=== PATIENT | female | born 1945 | race Caucasian/White ===

== ENCOUNTER 2017-01-26 13:17 | Inpatient (IN) | payer MEDICARE ==
[2017-01-26] MEDS ORDERED: SODIUM CHLORIDE 0.9% 1,000 ML IV STA ×2 (14:16)
[2017-01-26] MEDS ORDERED: ONDANSETRON 4 MG/2 ML VIAL IVP STA (14:16)
[2017-01-26] MEDS ORDERED: RX INFO: IV CONTRAST WAS GIVEN 1 EACH MISC MISCELLANE PRN (14:16)
--- NOTE | 2017-01-26 14:24 | ED ---
General Adult HPI - General Chief complaint: Nausea/Vomiting/Diarrhea Stated complaint: diarrhea Time Seen by Provider: 01/26/17 14:10 Source: patient, family, RN notes reviewed Mode of arrival: ambulatory Limitations: no limitations - History of Present Illness Initial comments: 71-year-old female with past medical history hypertension and hypercholesterolemia presents with a two-week history of diarrhea. Patient's diarrhea initially was loose stool, progressing to watery and containing mucous. There is no reported blood. Patient did have one episode of nausea vomiting 2 nights ago. Patient was seen at urgent care and treated with loperamide. Her diarrhea has persisted and her pain has worsened. She is describing crampy abdominal pain worse in the left lower quadrant. Patient denies subjective fever or chills, however she is found to be febrile in the emergency department. Denies chest pain or shortness of breath. Denies dysuria. She was recently treated for a fungal infection on her foot, she was given a ten-day course of medication but is uncertain what this is. Only recent travel was to [place]. There is no known sick contacts. Past surgical history of cholecystectomy and hysterectomy. - Related Data Home Medications Medication Instructions Recorded Confirmed Albuterol Sulfate [Proair Hfa] 1 - 2 puff INHALATION RT-Q6H PRN 01/26/17 Calcium Carbonate [Calcium] 600 mg PO DAILY 01/26/17 01/26/17 FLUoxetine HCL [PROzac Weekly] 90 mg PO TU 01/26/17 01/26/17 Losartan Potassium [Cozaar] 25 mg PO DAILY 01/26/17 01/26/17 Pravastatin Sodium [Pravachol] 20 mg PO HS 01/26/17 01/26/17 Allergies Allergy/AdvReac Type Severity Reaction Status Date / Time Penicillins Allergy Rash/Hives Verified 01/26/17 14:24 Review of Systems ROS Statement: Those systems with pertinent positive or pertinent negative responses have been documented in the HPI. ROS Other: All systems not noted in ROS Statement are negative. Past Medical History Past Medical History: Hyperlipidemia, Hypertension History of Any Multi-Drug Resistant Organisms: None Reported Past Surgical History: Cholecystectomy, Hysterectomy, Tubal Ligation Additional Past Surgical History / Comment(s): bladder suspension Past Psychological History: Anxiety Smoking Status: Never smoker Past Alcohol Use History: Occasional Past Drug Use History: None Reported General Exam Limitations: no limitations General appearance: alert, in no apparent distress Head exam: Present: atraumatic, normocephalic, normal inspection Eye exam: Present: normal appearance, PERRL, EOMI ENT exam: Present: normal exam, normal oropharynx, mucous membranes moist Neck exam: Present: normal inspection. Absent: tenderness, meningismus Respiratory exam: Present: normal lung sounds bilaterally. Absent: respiratory distress, wheezes Cardiovascular Exam: Present: regular rate, normal rhythm, normal heart sounds GI/Abdominal exam: Present: soft, tenderness (Generalized tenderness to palpation, worse in the left lower quadrant). Absent: guarding, rebound Extremities exam: Present: normal inspection, normal capillary refill. Absent: pedal edema Neurological exam: Present: alert, oriented X3. Absent: motor sensory deficit Psychiatric exam: Present: normal affect, normal mood Skin exam: Present: warm, dry. Absent: cyanosis, diaphoretic Course Vital Signs 01/26/17 13:42 Temperature 101.4 F H Pulse Rate 93 Respiratory 16 Rate Blood Pressure 144/62 O2 Sat by Pulse 96 Oximetry Medical Decision Making - Medical Decision Making 71-year-old female presenting with two-week history of diarrhea. Patient states her diarrhea is will see watery with some mucus. Denies any blood. On examination patient does have generalized tenderness to palpation worsen the left lower quadrant. CT is obtained which shows diffuse colitis, no diverticulitis, no focal abscess. White blood cell count is elevated at 17.5, there is signs of urinary tract infection although patient denies dysuria, she is febrile. Urine culture is obtained patient is Started on antibiotics for urinary tract infection. C. difficile toxin is pending. Patient is febrile and appears somewhat dehydrated on examination. She will be admitted for IV rehydration, antibiotics for presumed urinary tract infection, and colitis, possible C. difficile, laboratory study is pending. Diagnosis: Dehydration, UTI, colitis, rule out C. difficile. - Lab Data Result diagrams: 01/26/17 14:31 01/26/17 14:31 Lab Results 01/26/17 01/26/17 01/26/17 Range/Units 14:31 14:31 14:31 WBC 17.5 H (3.8-10.6) k/uL RBC 4.61 (3.80-5.40) m/uL Hgb 13.4 (11.4-16.0) gm/dL Hct 40.3 (34.0-46.0) % MCV 87.5 (80.0-100.0) fL MCH 29.1 (25.0-35.0) pg MCHC 33.3 (31.0-37.0) g/dL RDW 13.7 (11.5-15.5) % Plt Count 314 (150-450) k/uL Neutrophils % 80 % Lymphocytes % 11 % Monocytes % 6 % Eosinophils % 1 % Basophils % 0 % Neutrophils # 13.9 H (1.3-7.7) k/uL Lymphocytes # 2.0 (1.0-4.8) k/uL Monocytes # 1.0 (0-1.0) k/uL Eosinophils # 0.2 (0-0.7) k/uL Basophils # 0.1 (0-0.2) k/uL Sodium 133 L (137-145) mmol/L Potassium 4.5 (3.5-5.1) mmol/L Chloride 96 L (98-107) mmol/L Carbon Dioxide 27 (22-30) mmol/L Anion Gap 10 mmol/L BUN 9 (7-17) mg/dL Creatinine 0.66 (0.52-1.04) mg/dL Est GFR (MDRD) Af Amer >60 (>60 ml/min/1.73 sqM) Est GFR (MDRD) Non-Af >60 (>60 ml/min/1.73 sqM) Glucose 88 (74-99) mg/dL Calcium 9.2 (8.4-10.2) mg/dL Total Bilirubin 0.9 (0.2-1.3) mg/dL AST 31 (14-36) U/L ALT 37 (9-52) U/L Alkaline Phosphatase 74 (38-126) U/L Total Protein 6.1 L (6.3-8.2) g/dL Albumin 3.7 (3.5-5.0) g/dL Amylase <30 L (30-110) U/L Lipase 53 (23-300) U/L Urine Color Dark Brown Urine Appearance Turbid H (Clear) Urine pH 6.0 (5.0-8.0) Ur Specific [place] 1.024 (1.001-1.035) Urine Protein 2+ H (Negative) Urine Glucose (UA) Negative (Negative) Urine Ketones 1+ H (Negative) Urine Blood Small H (Negative) Urine Nitrite Negative (Negative) Urine Bilirubin Negative (Negative) Urine Urobilinogen <2.0 (<2.0) mg/dL Ur Leukocyte Esterase Large H (Negative) Urine RBC 2 (0-5) /hpf Urine WBC 102 H (0-5) /hpf Urine WBC Clumps Many H (None) /hpf Ur Squamous Epith Cells 1 (0-4) /hpf Urine Bacteria Occasional H (None) /hpf Urine Mucus Rare H (None) /hpf Disposition Clinical Impression: Dehydration, Colitis Disposition: ADMITTED IP TO THIS HOSP Condition: Stable Referrals: Nonstaff,Physician [Primary Care Provider] - 1-2 days Decision to Admit Reason: Admit from EC Decision Date: 01/26/17 Decision Time: 17:05
[2017-01-26 14:53] LABS: Basophils # (A) 0.1 k/uL (0-0.2); Basophils % (A) 0 %; CH 30.5; Eosinophils # (A) 0.2 k/uL (0-0.7); Eosinophils % (A) 1 %; HCT 40.3 % (34.0-46.0); HDW 2.79; HGB 13.4 gm/dL (11.4-16.0); Luc # (Auto) 0.23; Luc % (Auto) 1; Lymphocytes % (A) 11 %; MCH 29.1 pg (25.0-35.0); MCHC 33.3 g/dL (31.0-37.0); MCV 87.5 fL (80.0-100.0); Mean Platelet Volume 7.8; Monocytes % (A) 6 %; Neutrophils # (A) 13.9 k/uL (1.3-7.7); Neutrophils % (A) 80 %; RBC 4.61 m/uL (3.80-5.40); RDW 13.7 % (11.5-15.5); WBC 17.5 k/uL (3.8-10.6); WBC (Perox) 17.85
[2017-01-26 15:01] LABS: Appearance,Urine Turbid (Clear); Bacteria,Urine Occasional /hpf; Bilirubin,Urine Negative (Negative); Glucose,Urine (UA) Negative (Negative); Ketones,Urine 1+ (Negative); Leukocyte Esterase,Urine Large (Negative); Mucus,Urine Rare /hpf; Nitrite,Urine Negative (Negative); Particle Count 16884; Protein,Urine 2+ (Negative); RBC,Urine 2 /hpf (0-5); Specific Gravity,Urine 1.024 (1.001-1.035); Squamous Epithelial Cell,Urine 1 /hpf (0-4); UA Billing (MACRO vs. MICRO) MICRO; Urobilinogen,Urine <2.0 mg/dL (<2.0); WBC,Urine 102 /hpf (0-5)
[2017-01-26 15:03] LABS: ALT 37 U/L (9-52); AST 31 U/L (14-36); Alkaline Phosphatase 74 U/L (38-126); Amylase <30 U/L (30-110); Anion Gap 10 mmol/L; Blood Urea Nitrogen 9 mg/dL (7-17); Calcium 9.2 mg/dL (8.4-10.2); Carbon Dioxide 27 mmol/L (22-30); Chloride 96 mmol/L (98-107); Glucose 88 mg/dL (74-99); Non-African American GFR(MDRD) >60 (>60 ml/min/1.73 sqM); Potassium 4.5 mmol/L (3.5-5.1); Sodium 133 mmol/L (137-145); Total Bilirubin 0.9 mg/dL (0.2-1.3); Total Protein 6.1 g/dL (6.3-8.2)
--- NOTE | 2017-01-26 15:49 | CT ---
EXAMINATION TYPE: CT abdomen pelvis w con DATE OF EXAM: 01/26/2017 COMPARISON: NONE HISTORY: Diarrhea and left lower quadrant pain x [address] DLP: 615.70 mGycm CONTRAST: CT scan of the abdomen and pelvis is performed without Oral Contrast and with IV Contrast, patient in jected with 100 mL of Omnipaque 300. FINDINGS: LUNG BASES-: No visible nodule. No infiltrate. LIVER/GB: Simple hepatic cyst is noted which measures 2.6 cm. Cholecystectomy clips are in place. Jason iary tree is of normal caliber. PANCREAS: No inflammation. No distinct mass. SPLEEN: No splenic enlargement. No lesion seen. ADRENALS: No nodule. No thickening. KIDNEYS/BLADDER: No hydronephrosis. 1 cm left lower pole renal calculus. No disctinct renal mass. Ur inary bladder grossly unremarkable. BOWEL: Normal appendix. There is moderate wall thickening involving the colon extending from the sple con flexure through the sigmoid colon compatible with nonspecific colitis. Differential diagnostic po ssibilities include various infectious, inflammatory and vascular etiologies. No evidence of perforat ion or free air. No abscess identified. Trace free fluid within the pelvis. GENITAL ORGANS: No gross abnormality. LYMPH NODES: No greater than 1cm abdominal or pelvic lymph nodes are appreciated. AORTA: No significant abnormality. OSSEOUS STRUCTURES: No significant abnormality is seen. OTHER: No significant additional abnormality is seen. IMPRESSION: 1. Findings compatible with a nonspecific colitis.
[2017-01-26] MEDS ORDERED: NALOXONE 0.4 MG/ML 1 ML VIAL IV PRN (17:38)
[2017-01-26] MEDS ORDERED: MORPHINE SULFATE 4 MG/ML SYRINGE IV PRN (17:38)
[2017-01-26] MEDS ORDERED: ACETAMINOPHEN TAB 325 MG TAB PO STA (17:49)
[2017-01-26] MEDS ORDERED: metroNIDAZOLE-NS PMX 500 MG in SALINE 1 100ML.BAG IVPB STA (18:15)
[2017-01-26] MEDS: DEXTROSE 5%-0.45% NACL 1,000 ML IV SCH (21:24)
[2017-01-26] MEDS: metroNIDAZOLE-NS PMX 500 MG in SALINE 1 100ML.BAG IVPB SCH (21:26)
[2017-01-26] MEDS: FAMOTIDINE 20 MG TAB PO SCH (21:33)
[2017-01-26] MEDS: ONDANSETRON 4 MG/2 ML VIAL IVP PRN (21:34)
[2017-01-27] MEDS ORDERED: ACETAMINOPHEN TAB 325 MG TAB PO STA (06:21)
[2017-01-27] MEDS: DEXTROSE 5%-0.45% NACL 1,000 ML IV SCH (06:32)
[2017-01-27] MEDS: FAMOTIDINE 20 MG TAB PO SCH ×2 (08:28→19:54)
[2017-01-27 08:35] LABS: Basophils # (A) 0.1 k/uL (0-0.2); Basophils % (A) 0 %; CH 30.3; CHCM 34.1; Eosinophils # (A) 0.3 k/uL (0-0.7); Eosinophils % (A) 2 %; HCT 38.7 % (34.0-46.0); HDW 2.76; HGB 12.6 gm/dL (11.4-16.0); Luc # (Auto) 0.21; Luc % (Auto) 1; Lymphocytes # (A) 2.3 k/uL (1.0-4.8); Lymphocytes % (A) 13 %; MCH 29.1 pg (25.0-35.0); MCHC 32.7 g/dL (31.0-37.0); MCV 89.2 fL (80.0-100.0); Mean Platelet Volume 8.2; Monocytes # (A) 1.1 k/uL (0-1.0); Monocytes % (A) 6 %; Neutrophils # (A) 13.4 k/uL (1.3-7.7); Neutrophils % (A) 77 %; RBC 4.34 m/uL (3.80-5.40); RDW 13.1 % (11.5-15.5); WBC 17.4 k/uL (3.8-10.6); WBC (Perox) 16.98
[2017-01-27 08:54] LABS: ALT 37 U/L (9-52); AST 32 U/L (14-36); Alkaline Phosphatase 74 U/L (38-126); Anion Gap 10 mmol/L; Blood Urea Nitrogen 7 mg/dL (7-17); Calcium 8.5 mg/dL (8.4-10.2); Carbon Dioxide 24 mmol/L (22-30); Chloride 100 mmol/L (98-107); Glucose 88 mg/dL (74-99); Magnesium 1.6 mg/dL (1.6-2.3); Non-African American GFR(MDRD) >60 (>60 ml/min/1.73 sqM); Potassium 3.8 mmol/L (3.5-5.1); Sodium 134 mmol/L (137-145); Total Bilirubin 0.7 mg/dL (0.2-1.3); Total Protein 5.4 g/dL (6.3-8.2)
[2017-01-27] MEDS: metroNIDAZOLE-NS PMX 500 MG in SALINE 1 100ML.BAG IVPB SCH ×3 (09:40→20:33)
[2017-01-27] MEDS: CHERRY FLAVOR 60 ML BOTTLE PO PRN ×2 (12:46→18:02)
[2017-01-27] MEDS: VANCOMYCIN ORAL SOLUTION 250 MG/5 ML BOTTLE PO SCH ×3 (12:46→23:07)
[2017-01-27] MEDS: CHOLESTYRAMINE (WITH SUGAR) 4 GM PACKET PO SCH ×2 (16:08→19:53)
[2017-01-27] MEDS ORDERED: ALPRAZolam 0.25 MG TAB PO PRN (16:18)
[2017-01-27] MEDS ORDERED: TEMAZEPAM 15 MG CAP PO PRN (16:18)
[2017-01-27] MEDS ORDERED: HYDROmorphone 1 MG/ML 1 ML SYRINGE IVP PRN (16:18)
[2017-01-27] MEDS ORDERED: HYDROcodone/APAP 5-325MG 1 EACH TAB PO PRN (16:18)
[2017-01-27] MEDS ORDERED: ALBUTEROL NEBULIZED 2.5 MG/3 ML INHALATION PRN (16:18)
[2017-01-27] MEDS: SODIUM CHLORIDE 0.9% 1,000 ML IV SCH (16:43)
[2017-01-27] MEDS: PRAVASTATIN SODIUM 20 MG TAB PO SCH (20:33)
--- NOTE | 2017-01-27 22:25 | HP ---
CHIEF COMPLAINT: Abdominal pain and diarrhea and nausea. HISTORY OF PRESENT ILLNESS: This 71-year-old woman with a past medical history of multiple medical problems, including hypertension, hyperlipidemia, being followed by a primary physician in [place], was living in [place] for the summer. A couple of months ago, the patient had a 10-day course of antibiotics for bronchitis. Currently patient is complaining of abdominal pain and diarrhea for the past several days. Because of increasing difficulties, the patient came to [facility] and has been admitted for further evaluation and treatment. The patient had multiple evaluations after admission. White count is elevated. C difficile is positive. The patient also had abnormal pelvis CT scan which showed non-specific colitis. The patient is admitted for further evaluation and treatment. There is no history of any fever, rigor or chills. No history of headache, loss of consciousness or seizures at this time. PAST MEDICAL HISTORY: 1. History of hypertension. 2. Hyperlipidemia. 3. Cholecystectomy. Medications prior to admission include: 1. Pravastatin 20 mg at bedtime. 2. Cozaar 25 mg p.o. daily. 3. Prozac 90 mg p.o. Tuesday. 4. Calcium 600 mg p.o. daily. 5. ProAir HFA 2 puffs q.6 p.r.n. ALLERGIES: PENICILLIN. FAMILY HISTORY: History of CVA, TIA, hypertension, emphysema in the family. SOCIAL HISTORY: No history of smoking. Occasional alcohol intake. REVIEW OF SYSTEMS: ENT: No diminished hearing. No diminished vision. CARVIOVASCULAR SYSTEM: No angina, palpitations. RESPIRATORY SYSTEM: As mentioned earlier. GI: No nausea, vomiting. : No dysuria, retention. NERVOUS SYSTEM: No numbness, weakness. ALLERGY/IMMUNOLOGY: No asthma, hayfever. MUSCULOSKELETAL: As mentioned earlier. HEMATOLOGY/ONCOLOGY: No history of anemia. ENDOCRINE: No history of diabetes, hypothyroidism. CONSTITUTIONAL: As mentioned earlier. DERMATOLOGY: Negative. RHEUMATOLOGY: Negative. PSYCHIATRY: As mentioned earlier. PHYSICAL EXAM: Patient is alert and oriented x3. Pulse is 85, blood pressure 129 /61, respiration 16, temperature 98.1, pulse ox 97% on room air. HEENT: Conjunctivae normal. Oral mucosa is moist. NECK: No jugular venous distention. No carotid bruit. No lymph node enlargement. CARDIOVASCULAR: S1, S2 normal. No murmur. No thrills. RESPIRATORY: Breath sounds diminished at the bases. No rhonchi. No crackles. ABDOMEN: Soft. Mild diffuse tenderness present. Mild diffuse distention also present. No mass palpable. LEGS: No edema. No swelling. NERVOUS SYSTEM: Higher functions as mentioned earlier. Moves all 4 limbs. No focal motor or sensory deficit. LYMPHATICS: No lymph node palpable in neck, axillae or groin. SKIN: No ulcer, rash, bleeding. LABS: WBC 17.5. Sodium 133. UA noted. ASSESSMENT: 1. Abdominal pain and diarrhea with possible acute Clostridium difficile colitis with SIRS. 2. Hyponatremia. 3. History of hypertension. 4. Hyperlipidemia. 5. History of cholecystectomy. RECOMMENDATIONS AND DISCUSSION: In this 71-year-old woman who presented with multiple complex medical issues, we will monitor the patient closely, continue the current medications, continue with symptomatic treatment. Will add p.o. vancomycin. Infectious disease evaluation. Otherwise, continue to monitor. DVT prophylaxis. Incentive spirometry. Guarded prognosis because of the complex medical issues. Cultures have been requested. I would also recommend basic labs , pain medications. Further recommendations to follow. See orders for further details. Also recommend that the patient follows up with a primary physician closely after discharge for continued followup. This particular episode of C difficile could be mostly related to the antibiotic usage earlier this summer by the patient. I would recommend continuing with home medications, also. MANDAD
[2017-01-27] MEDS: ACETAMINOPHEN TAB 500 MG TAB PO PRN (23:06)
[2017-01-28 07:18] LABS: Basophils # (A) 0.1 k/uL (0-0.2); Basophils % (A) 0 %; CH 29.1; CHCM 33.7; Eosinophils # (A) 0.5 k/uL (0-0.7); Eosinophils % (A) 3 %; HCT 33.8 % (34.0-46.0); HDW 2.97; HGB 11.3 gm/dL (11.4-16.0); Luc # (Auto) 0.17; Luc % (Auto) 1; Lymphocytes # (A) 1.8 k/uL (1.0-4.8); Lymphocytes % (A) 12 %; MCH 29.2 pg (25.0-35.0); MCHC 33.6 g/dL (31.0-37.0); MCV 86.9 fL (80.0-100.0); Mean Platelet Volume 7.3; Monocytes # (A) 0.8 k/uL (0-1.0); Monocytes % (A) 5 %; Neutrophils # (A) 11.4 k/uL (1.3-7.7); Neutrophils % (A) 78 %; RBC 3.89 m/uL (3.80-5.40); RDW 12.8 % (11.5-15.5); WBC 14.6 k/uL (3.8-10.6)
[2017-01-28 07:36] LABS: Anion Gap 6 mmol/L; Blood Urea Nitrogen 4 mg/dL (7-17); Calcium 8.3 mg/dL (8.4-10.2); Carbon Dioxide 25 mmol/L (22-30); Chloride 107 mmol/L (98-107); Glucose 88 mg/dL (74-99); Non-African American GFR(MDRD) >60 (>60 ml/min/1.73 sqM); Potassium 3.6 mmol/L (3.5-5.1); Sodium 138 mmol/L (137-145)
[2017-01-28] MEDS: LOSARTAN 25 MG TAB PO SCH (09:49)
[2017-01-28] MEDS: FAMOTIDINE 20 MG TAB PO SCH ×2 (09:49→22:01)
[2017-01-28] MEDS: metroNIDAZOLE-NS PMX 500 MG in SALINE 1 100ML.BAG IVPB SCH ×3 (09:49→22:08)
[2017-01-28] MEDS: CHOLESTYRAMINE (WITH SUGAR) 4 GM PACKET PO SCH ×3 (09:50→20:22)
[2017-01-28] MEDS: SODIUM CHLORIDE 0.9% 1,000 ML IV SCH ×2 (09:50→22:06)
[2017-01-28] MEDS: VANCOMYCIN ORAL SOLUTION 250 MG/5 ML BOTTLE PO SCH ×3 (09:52→18:49)
--- NOTE | 2017-01-28 13:43 | CONS ---
DATE OF CONSULTATION: 01/27/2017 REASON FOR CONSULTATION: C-dif colitis. HISTORY OF PRESENT ILLNESS: The patient is a 71-year-old female who was treated in December with bilateral toes infection. The patient ( ) she was given antibiotics for ten days and afterwards she has been given ( ) for six weeks. The patient started having diarrhea on January 11 and has been having diarrhea for the last two weeks now. She did have multiple loose stools with mucous in it but no blood in it. The patient did have some crampy lower abdominal pain mostly on the left side intensity about 5 to 6 out of 10. Some nausea and she did have an episode of vomiting. With these symptoms, the patient did present to [facility] ER where the patient has been evaluated by the ER physician. The patient did have a CT of the abdomen and pelvis that did show evidence of a nonspecific colitis. The patient did have a fever of 102.3 degrees with an elevated white count of 17.5. Stool for C. dif was sent which came back positive. The patient also did have a positive UA. No significant urinary symptoms. Rocephin was added as well. I was asked to see the patient today for further recommendation regarding antibiotic therapy. REVIEW OF SYSTEMS: Constitutional: Positive for weakness along with fever. EYES: No complaint. HEENT: No complaint. Respiratory: No complaint. Cardiovascular: No complaint. : No complaint. Gastrointestinal: As per history of present illness. Musculoskeletal: No complaint. Integumentary: No complaint. Psychological: No complaint. Endocrine: No complaint. Neurological: No complaint. Past medical history significant for hypertension, hyperlipidemia. Past surgical history: Tubal ligation, hysterectomy, cholecystectomy. SOCIAL HISTORY: No history of smoking, drinking or drug use. FAMILY HISTORY: No pertinent findings noticed. ALLERGIES: PENICILLIN ( ). Medications include the patient is currently on: 1. Tylenol. 2. [place]. 3. Xanax. 4. Questran. 5. Pepcid. 6. Dilaudid. 7. Cozaar. 8. Flagyl IV. 9. P.o. Vancomycin. 10. Pravachol. 11. ( ). 12. Rocephin. On examination, blood pressure is 129/61 with a pulse of 85. Temperature 98.1. T-Max 102. She is 97% on room air. General description is an elderly female up in the chair, in no distress. No tachypnea or accessory muscles of respiration use. HEENT: Examination no pallor or scleral icterus. Oral mucosa membranes dry. NECK: Trachea is central. No thyromegaly. LUNGS: Unlabored breathing. Clear to auscultation anteriorly. No wheeze or crackle. HEART: S1, S2 regular rate and rhythm. ABDOMEN: Soft. She is mildly tender in the lower quadrant area. No guarding and no rigidity. EXTREMITIES: No edema of the feet. SKIN: No rash or mass palpable. NEUROLOGICALLY: The patient is awake, alert and oriented times two. Mood and affect normal. LABS: Hemoglobin 12.6, white count 17.4, BUN 7, creatinine 0.72. Electrolytes have been normal. Liver enzymes are normal. Urine has been positive. Stools C. dif positive. CT of the abdomen and pelvis with nonspecific colitis. DIAGNOSTIC IMPRESSION AND PLAN: 1. The patient admitted to the hospital with sepsis and the patient did have a fever of 102 degrees. She had elevated white count meeting criteria for SIRS in a patient who predominant symptom has been diarrhea going on four about two weeks with antibiotic exposure prior to that for toe infection and evidence of colitis on a CT, likely representing an acute D. dif colitis. 2. The patient did have a positive UA but no significant urinary symptoms, with question of possible asymptomatic bacteruria. PLAN: 1. We recommend keeping the patient on Vancomycin 250 po q6h along with IV Flagyl and Questran. 2. Aggressive treatment for underlying C. dif colitis. 3. Discontinue the Rocephin as clinical suspicion is low for UTI and to prevent any worsening from underlying C. dif. 4. The patient has been advised to increase Probiotic and ( ) intake. 5. We will follow-up on the clinical condition and cultures to further adjust medication if needed. Thank you for this consultation. We will follow this patient along with you. KATIE
--- NOTE | 2017-01-28 17:00 | PN ---
DATE OF SERVICE: 01/28/2017 REASON FOR FOLLOWUP: C difficile colitis. INTERVAL HISTORY: The patient did have fever of 101.4 degrees Fahrenheit last night. However, the patient has been afebrile since then. The patient's diarrhea seems to have improved, with no BM this morning. Patient did have lunch , which she kept down, and no nausea or vomiting. Denies significant chest pain , shortness of breath or cough, and no worsening abdominal pain. On examination, blood pressure is 123/55 with a pulse of 79, temperature 99.4. She is 96% on room air. General description is an elderly female up in the room in no distress. RESPIRATORY SYSTEM: Unlabored breathing. Clear to auscultation anteriorly. HEART: S1, S2. Regular rate and rhythm. ABDOMEN: Soft. Mildly distended. Not as tender as yesterday. LABS: Hemoglobin 11.3, white count 14.6 with a BUN of 4, creatinine 0.66. DIAGNOSTIC IMPRESSION AND PLAN: Patient with Clostridium difficile colitis, admitted to hospital with sepsis. Will keep the patient on IV Flagyl and oral vancomycin for another 24 to 48 hours. The patient did have overall clinical improvement. She should be able to finish therapy with oral vancomycin for at least 2 more weeks with close outpatient followup. Patient has been advised to use her probiotic ( ). MTDD
[2017-01-28] MEDS: ACETAMINOPHEN TAB 500 MG TAB PO PRN (20:19)
--- NOTE | 2017-01-28 20:22 | P.PN ---
Subjective Date of service 01/28/2017. Personal being dictated for Dr. Johnson. Interval history: This a 71-year-old female admitted with acute C. difficile colitis with SIRS, hyponatremia and multiple other medical issues. Maintained on vancomycin and Flagyl. Diarrhea improving. No Nausea, no vomiting. Abdominal pain improving. Soft bland diet initiated today. T-max 101.7. Antibiotics as per infectious disease. Denies chest pain, palpitations or increasing shortness of breath. Objective - Vital Signs Vital signs: Vital Signs Temp 100.0 F H 01/28/17 15:00 Pulse 72 01/28/17 15:00 Resp 16 01/28/17 16:00 BP 128/72 01/28/17 15:00 Pulse Ox 98 01/28/17 15:00 Intake & Output 01/28/17 01/28/17 01/29/17 06:59 18:59 06:59 Intake Total 2150 400 Balance 2150 400 Weight 68.039 kg Intake: Intake, IV Titration 2150 Amount Dextrose 5%-0.45% NaCl 1, 1000 000 ml @ 75 mls/hr IV . [id number] ANNA Rx#:[id number] Sodium Chloride 0.9% 1, 1000 000 ml @ 75 mls/hr IV . [id number] ANNA Rx#:[id number] cefTRIAXone 1,000 mg In 50 Sodium Chloride 0.9% 50 ml @ 100 mls/hr IVPB Q24HR ANNA Rx#:[id number] metroNIDAZOLE-NS PMX 500 100 mg In Saline 1 100ml.bag @ 100 mls/hr IVPB TID ANNA Rx#:[id number] Oral 400 Other: Voiding Method Toilet Toilet # Voids 1 3 # Bowel Movements 2 - Exam PHYSICAL EXAM: VITAL SIGNS: As above GENERAL: [Sitting up in bed, no acute distress] HEENT: [Pupils equal conjunctiva normal. Oral mucosa moist] NECK: [Supple, no JVD, no carotid bruits, no lymph node enlargement] RESPIRATORY EFFORT:[ Normal] LUNGS: [Bilateral bases diminished, no rhonchi, no crackles, no wheezing] CARDIOVASCULAR[ regular S1 and S2, no murmurs ,no rubs, no gallop] GI: [Abdomen soft, nontender, positive bowel sounds.] PSYCH: [Alert and oriented -3, mood and affect normal.] SKIN: No ulcer, rash, bleeding. NEURO: [No focal deficits, moves all 4 extremities, strength and sensation grossly intact] Microbiology 01/26/17 23:37 Blood Blood Culture - Preliminary No Growth after 24 hours 01/26/17 15:25 Urine,Voided Urine Culture - Preliminary - Labs CBC & Chem 7: 01/28/17 06:58 01/28/17 06:58 Labs: Abnormal Lab Results - Last 24 Hours (Table) 01/28/17 01/28/17 Range/Units 06:58 06:58 WBC 14.6 H (3.8-10.6) k/uL Hgb 11.3 L (11.4-16.0) gm/dL Hct 33.8 L (34.0-46.0) % Neutrophils # 11.4 H (1.3-7.7) k/uL BUN 4 L (7-17) mg/dL Calcium 8.3 L (8.4-10.2) mg/dL Microbiology - Last 24 Hours (Table) 01/26/17 23:37 Blood Culture - Preliminary Blood No Growth after 24 hours Assessment and Plan Plan: 1. [Acute C. difficile colitis with sepsis 2. [ Hyponatremia, resolved. Plan: Continue on current medication regime ,monitoring and symptomatic treatment. Antibiotics as per infectious disease. Close monitoring of electrolytes with repeat labs ordered for a.m. The impression and plan of care has been dictated as directed. : I performed a H&P examination of this patient and discussed the same with the dictator. I agree with the dictator's note. Any additional findings/opinions/ etc. will be noted.
[2017-01-28] MEDS: PRAVASTATIN SODIUM 20 MG TAB PO SCH (22:01)
[2017-01-29] MEDS: CHERRY FLAVOR 60 ML BOTTLE PO PRN ×5 (00:30→23:57)
[2017-01-29] MEDS: VANCOMYCIN ORAL SOLUTION 250 MG/5 ML BOTTLE PO SCH ×5 (00:30→23:57)
[2017-01-29] MEDS: ONDANSETRON 4 MG/2 ML VIAL IVP PRN ×2 (00:48→12:51)
[2017-01-29 08:03] LABS: Basophils # (A) 0.1 k/uL (0-0.2); Basophils % (A) 0 %; CH 29.9; CHCM 33.2; Eosinophils # (A) 0.5 k/uL (0-0.7); Eosinophils % (A) 3 %; HCT 37.9 % (34.0-46.0); HDW 2.94; HGB 12.1 gm/dL (11.4-16.0); Luc # (Auto) 0.13; Luc % (Auto) 1; Lymphocytes # (A) 1.6 k/uL (1.0-4.8); Lymphocytes % (A) 10 %; MCH 28.8 pg (25.0-35.0); MCHC 31.8 g/dL (31.0-37.0); MCV 90.7 fL (80.0-100.0); Mean Platelet Volume 8.2; Monocytes # (A) 0.7 k/uL (0-1.0); Monocytes % (A) 4 %; Neutrophils # (A) 13.2 k/uL (1.3-7.7); Neutrophils % (A) 82 %; RBC 4.18 m/uL (3.80-5.40); RDW 13.3 % (11.5-15.5); WBC 16.2 k/uL (3.8-10.6); WBC (Perox) 15.89
[2017-01-29 08:36] LABS: Anion Gap 8 mmol/L; Blood Urea Nitrogen 2 mg/dL (7-17); Calcium 8.6 mg/dL (8.4-10.2); Carbon Dioxide 25 mmol/L (22-30); Chloride 106 mmol/L (98-107); Glucose 137 mg/dL (74-99); Non-African American GFR(MDRD) >60 (>60 ml/min/1.73 sqM); Potassium 3.9 mmol/L (3.5-5.1); Sodium 139 mmol/L (137-145)
[2017-01-29] MEDS: metroNIDAZOLE-NS PMX 500 MG in SALINE 1 100ML.BAG IVPB SCH ×3 (09:52→21:53)
[2017-01-29] MEDS: SODIUM CHLORIDE 0.9% 1,000 ML IV SCH ×2 (09:53→23:58)
[2017-01-29] MEDS: LOSARTAN 25 MG TAB PO SCH (09:53)
[2017-01-29] MEDS: CHOLESTYRAMINE (WITH SUGAR) 4 GM PACKET PO SCH ×3 (09:53→18:11)
[2017-01-29] MEDS: FAMOTIDINE 20 MG TAB PO SCH ×2 (09:53→21:50)
--- NOTE | 2017-01-29 14:45 | P.PN ---
Subjective Progress note being dictated for Dr. Johnson. 01/28/17 Interval history: This a 71-year-old female admitted with acute C. difficile colitis with SIRS, hyponatremia and multiple other medical issues. Maintained on vancomycin and Flagyl. Diarrhea improving. No Nausea, no vomiting. Abdominal pain improving. Soft bland diet initiated today. T-max 101.7. Antibiotics as per infectious disease. Denies chest pain, palpitations or increasing shortness of breath. 01/29/2017 continues on antibiotics as per infectious disease. Diarrhea improving, reports scant small loose stools 2 this morning. No nausea or vomiting. Abdominal pain improved. Afebrile, T-max 100. WBC increased to 16.2. Objective - Vital Signs Vital signs: Vital Signs Temp 98.1 F 01/29/17 07:00 Pulse 78 01/29/17 07:00 Resp 16 01/29/17 07:00 BP 124/80 01/29/17 07:00 Pulse Ox 97 01/29/17 07:00 Intake & Output 01/28/17 01/29/17 01/29/17 18:59 06:59 18:59 Intake Total 400 200 Output Total 1 Balance 400 -1 200 Weight 68.039 kg Intake: Oral 400 200 Output: Emesis 1 Other: Voiding Method Toilet # Voids 3 1 # Bowel Movements 2 1 - Exam PHYSICAL EXAM: VITAL SIGNS: As above GENERAL: [Sitting up in bed, no acute distress] HEENT: [Pupils equal conjunctiva normal. Oral mucosa moist] NECK: [Supple, no JVD, no carotid bruits, no lymph node enlargement] RESPIRATORY EFFORT:[ Normal] LUNGS: [Bilateral bases diminished, occasional scattered rhonchi, no crackles, no wheezing] CARDIOVASCULAR[ regular S1 and S2, no murmurs ,no rubs, no gallop] GI: [Abdomen soft, nontender, positive bowel sounds. No guarding, no rigidity] PSYCH: [Alert and oriented -3, mood and affect normal.] SKIN: No ulcer, rash, bleeding. NEURO: [No focal deficits, moves all 4 extremities, strength and sensation grossly intact] Microbiology 01/26/17 23:37 Blood Blood Culture - Preliminary No Growth after 48 hours 01/26/17 15:25 Urine,Voided Urine Culture - Final - Labs CBC & Chem 7: 01/29/17 07:22 01/29/17 07:22 Labs: Abnormal Lab Results - Last 24 Hours (Table) 01/29/17 01/29/17 Range/Units 07:22 07:22 WBC 16.2 H (3.8-10.6) k/uL Neutrophils # 13.2 H (1.3-7.7) k/uL BUN 2 L (7-17) mg/dL Glucose 137 H (74-99) mg/dL Microbiology - Last 24 Hours (Table) 01/26/17 23:37 Blood Culture - Preliminary Blood No Growth after 48 hours 01/26/17 15:25 Urine Culture - Final Urine,Voided Assessment and Plan Plan: 1. [Acute C. difficile colitis with sepsis 2. [ Hyponatremia, resolved. Plan: Continue on current medication regime ,monitoring and symptomatic treatment. Antibiotics as per infectious disease. Close monitoring of electrolytes with repeat labs ordered for a.m. Increase ambulation as tolerated. The impression and plan of care has been dictated as directed. : I performed a H&P examination of this patient and discussed the same with the dictator. I agree with the dictator's note. Any additional findings/opinions/ etc. will be noted.
[2017-01-29] MEDS: ACETAMINOPHEN TAB 500 MG TAB PO PRN (18:25)
[2017-01-29] MEDS: PRAVASTATIN SODIUM 20 MG TAB PO SCH (21:50)
[2017-01-30] MEDS: ACETAMINOPHEN TAB 500 MG TAB PO PRN (04:23)
[2017-01-30] MEDS: CHERRY FLAVOR 60 ML BOTTLE PO PRN ×4 (06:34→23:06)
[2017-01-30] MEDS: VANCOMYCIN ORAL SOLUTION 250 MG/5 ML BOTTLE PO SCH ×4 (06:34→23:06)
[2017-01-30] MEDS: LOSARTAN 25 MG TAB PO SCH (08:17)
[2017-01-30] MEDS: CHOLESTYRAMINE (WITH SUGAR) 4 GM PACKET PO SCH ×3 (08:17→17:44)
[2017-01-30] MEDS: metroNIDAZOLE-NS PMX 500 MG in SALINE 1 100ML.BAG IVPB SCH ×3 (08:17→23:05)
[2017-01-30] MEDS: FAMOTIDINE 20 MG TAB PO SCH ×2 (08:17→20:16)
--- NOTE | 2017-01-30 08:26 | PN ---
DATE OF SERVICE: 01/29/17 REASON FOR FOLLOW UP: C. dif colitis. INTERVAL HISTORY: The patient is afebrile. She is feeling slightly better. Her diarrhea has slightly improved. The patient denies significant chest pain , shortness of breath or cough. On examination, blood pressure 118/69 with a pulse of 81. Temperature 98.2. She is 98% on room air. General description is an elderly female lying in the bed in no distress. Respiratory system unlabored breathing. Clear to auscultation anteriorly. Heart S1, S2 regular rate and rhythm. Abdomen soft. Mildly distended. No guarding or rigidity. LABS: Hemoglobin 12.1, white count up to ( ) today. BUN 2, creatinine 0.65. DIAGNOSTIC IMPRESSION AND PLAN: The patient with C. dif colitis. Plan is to continue the patient on Flagyl and Vanco for now along with Questran. Repeat CBC tomorrow. Family present at the bedside all their questions were answered. KATIE
[2017-01-30 08:42] LABS: Basophils # (A) 0.1 k/uL (0-0.2); Basophils % (A) 0 %; CH 29.7; CHCM 32.9; Eosinophils # (A) 0.4 k/uL (0-0.7); Eosinophils % (A) 4 %; HDW 2.94; Luc # (Auto) 0.11; Luc % (Auto) 1; Lymphocytes # (A) 1.4 k/uL (1.0-4.8); Lymphocytes % (A) 11 %; MCH 29.4 pg (25.0-35.0); MCHC 32.3 g/dL (31.0-37.0); MCV 90.8 fL (80.0-100.0); Mean Platelet Volume 8.3; Monocytes # (A) 0.6 k/uL (0-1.0); Monocytes % (A) 5 %; Neutrophils # (A) 9.9 k/uL (1.3-7.7); Neutrophils % (A) 79 %; RBC 3.74 m/uL (3.80-5.40); RDW 13.4 % (11.5-15.5); WBC 12.4 k/uL (3.8-10.6); WBC (Perox) 12.92
[2017-01-30 08:51] LABS: Anion Gap 7 mmol/L; Blood Urea Nitrogen 3 mg/dL (7-17); Calcium 8.3 mg/dL (8.4-10.2); Carbon Dioxide 25 mmol/L (22-30); Chloride 107 mmol/L (98-107); Glucose 129 mg/dL (74-99); Non-African American GFR(MDRD) >60 (>60 ml/min/1.73 sqM); Potassium 3.5 mmol/L (3.5-5.1); Sodium 139 mmol/L (137-145)
[2017-01-30] MEDS: ONDANSETRON 4 MG/2 ML VIAL IVP PRN (10:04)
[2017-01-30] MEDS: SODIUM CHLORIDE 0.9% 1,000 ML IV SCH (12:02)
[2017-01-30] MEDS: PRAVASTATIN SODIUM 20 MG TAB PO SCH (20:16)
[2017-01-31] MEDS: SODIUM CHLORIDE 0.9% 1,000 ML IV SCH (05:03)
[2017-01-31] MEDS: CHERRY FLAVOR 60 ML BOTTLE PO PRN ×2 (06:23→12:12)
[2017-01-31] MEDS: VANCOMYCIN ORAL SOLUTION 250 MG/5 ML BOTTLE PO SCH ×2 (06:23→12:12)
[2017-01-31 07:49] VITALS: BP 129/76; RESP 16; TEMP 98
[2017-01-31] MEDS ORDERED: diphenhydrAMINE 25 MG CAP PO PRN (08:05)
[2017-01-31 08:16] LABS: Basophils # (A) 0.1 k/uL (0-0.2); Basophils % (A) 1 %; CH 29.6; CHCM 32.3; Eosinophils # (A) 0.6 k/uL (0-0.7); Eosinophils % (A) 5 %; HCT 36.8 % (34.0-46.0); HDW 3.02; HGB 11.7 gm/dL (11.4-16.0); Hypochromasia Slight; Luc # (Auto) 0.13; Luc % (Auto) 1; Lymphocytes # (A) 1.3 k/uL (1.0-4.8); Lymphocytes % (A) 13 %; MCH 29.2 pg (25.0-35.0); MCHC 31.8 g/dL (31.0-37.0); MCV 91.9 fL (80.0-100.0); Mean Platelet Volume 7.7; Monocytes # (A) 0.5 k/uL (0-1.0); Monocytes % (A) 5 %; Neutrophils # (A) 7.8 k/uL (1.3-7.7); Neutrophils % (A) 75 %; RBC 4.01 m/uL (3.80-5.40); RDW 13.5 % (11.5-15.5); WBC 10.4 k/uL (3.8-10.6); WBC (Perox) 10.48
[2017-01-31 08:31] LABS: Anion Gap 7 mmol/L; Blood Urea Nitrogen 4 mg/dL (7-17); Calcium 8.5 mg/dL (8.4-10.2); Carbon Dioxide 26 mmol/L (22-30); Chloride 107 mmol/L (98-107); Glucose 92 mg/dL (74-99); Non-African American GFR(MDRD) >60 (>60 ml/min/1.73 sqM); Potassium 3.7 mmol/L (3.5-5.1); Sodium 140 mmol/L (137-145)
[2017-01-31] MEDS: metroNIDAZOLE-NS PMX 500 MG in SALINE 1 100ML.BAG IVPB SCH (09:15)
[2017-01-31] MEDS: LOSARTAN 25 MG TAB PO SCH (09:16)
[2017-01-31] MEDS: FAMOTIDINE 20 MG TAB PO SCH (09:16)
[2017-01-31] MEDS: CHOLESTYRAMINE (WITH SUGAR) 4 GM PACKET PO SCH (09:16)
--- NOTE | 2017-01-31 11:08 | PN ---
DATE OF SERVICE: 01/30/17 REASON FOR FOLLOW UP: C. dif colitis. INTERVAL HISTORY: The patient did spike a fever of 101 degrees early this morning. The patient is afebrile since then. The patient denies any worsening abdominal pain and the diarrhea seems to have slightly decreased in frequency and slightly forming up. No nausea or vomiting or any diarrhea. On examination, blood pressure 121/57 with a pulse of 80. Temperature 98.1. She is 97% on room air. General description is an elderly female lying in bed in no distress. Respiratory system unlabored breathing. Clear to auscultation anteriorly. Heart S1, S2 regular rate and rhythm. Abdomen soft. No significant tenderness. LABS: Hemoglobin 11, white count 12.4. BUN 3, creatinine 0.58. DIAGNOSTIC IMPRESSION AND PLAN: The patient with severe C. dif colitis seems to have clinically improved. She did have a fever though her white count has improved. We will keep the patient on Flagyl and po Vanco along with Questran for another 24 hours and reevaluate this patient tomorrow. Continue supportive care. MANDAD
[2017-01-31 12:00] VITALS: BMI 27.4
[2017-01-31 12:54] VITALS: PULSE 86
--- NOTE | 2017-01-31 14:46 | P.DS ---
Providers Date of admission: 01/26/17 17:38 Expected date of discharge: 01/31/17 Attending physician: Vianey Ramos Consults: 01/27/17 11:53 Consult Physician Routine Consulting Provider: Swapnil Leo Consult Reason/Comments: c diff colitis Do you want consulting provider notified?: Yes Primary care physician: Nonstaff Dr. Anton Hospital Course: Final Diagnoses: 1. [Acute C. difficile colitis with sepsis 2. [ Hyponatremia, resolved. Hospital course:This is a 71-year-old female admitted with acute C. difficile colitis with SIRS, hyponatremia and multiple other medical issues. Evaluated by infectious disease. Maintained on vancomycin and Flagyl. Significant clinical improvement.Patient has been cleared by infectious disease for discharge. Patient is being discharged home in a stable condition with guarded prognosis. The impression and plan of care has been dictated as directed as a scribe. : I performed a H&P examination of this patient and discussed the same with the dictator. I agree with the dictator's note. Any additional findings/opinions/ etc. will be noted. Patient Condition at Discharge: Stable Plan - Discharge Summary New Discharge Prescriptions: New Vancomycin Oral Solution 250 mg PO Q6HR #280 ml Cholestyramine (with Sugar) [Questran Packet] 4 gm PO TID BETWEEN MEALS #30 packet Famotidine [Pepcid] 20 mg PO BID #60 tab Continue FLUoxetine HCL [PROzac Weekly] 90 mg PO TU Calcium Carbonate [Calcium] 600 mg PO DAILY Albuterol Sulfate [Proair Hfa] 1 - 2 puff INHALATION RT-Q6H PRN PRN Reason: Shortness Of Breath Pravastatin Sodium [Pravachol] 20 mg PO HS Losartan Potassium [Cozaar] 25 mg PO DAILY Discharge Medication List Albuterol Sulfate [Proair Hfa] 1 - 2 puff INHALATION RT-Q6H PRN 01/26/17 [ History] Calcium Carbonate [Calcium] 600 mg PO DAILY 01/26/17 [History] FLUoxetine HCL [PROzac Weekly] 90 mg PO TU 01/26/17 [History] Losartan Potassium [Cozaar] 25 mg PO DAILY 01/26/17 [History] Pravastatin Sodium [Pravachol] 20 mg PO HS 01/26/17 [History] Cholestyramine (with Sugar) [Questran Packet] 4 gm PO TID BETWEEN MEALS #30 packet 01/31/17 [Rx] Famotidine [Pepcid] 20 mg PO BID #60 tab 01/31/17 [Rx] Vancomycin Oral Solution 250 mg PO Q6HR #280 ml 01/31/17 [Rx] Follow up Appointment(s)/Referral(s): Susanne Anton MD [STAFF PHYSICIAN] - 02/09/17 2:00 pm (Please schedule appointment prior to discharge as patient will be a new patient to Dr. Anton ) Swapnil Leo MD [STAFF PHYSICIAN] - 02/10/17 10:45 am Ambulatory/Diagnostic Orders: Complete Blood Count w/diff [LAB.AMB] Time Frame: 3 Days, Location: Determined By Patient Patient Instructions/Handouts: Clostridium Difficile Infection (DC) Activity/Diet/Wound Care/Special Instructions: antibx as per ID. Diet soft bland, no coffee pop, or tea, Yogurt 2-3 times daily
--- NOTE | 2017-01-31 18:13 | PN ---
DATE OF SERVICE: 01/31/17 REASON FOR FOLLOW UP: C. dif colitis. INTERVAL HISTORY: The patient is afebrile. She has been breathing comfortably. The patient denies significant chest pain, shortness of breath, cough. No abdominal pain. Diarrhea has improved. On examination, blood pressure 129/76 with a pulse of 86. Temperature 98. She is 96% on room air. General description is an elderly female up in the chair in no distress. Respiratory system unlabored breathing. Clear to auscultation anteriorly. Heart S1, S2 regular rate and rhythm. Abdomen soft. No tenderness. LABS: White count normalized to 10.4 with a BUN 14, creatinine 0.58. DIAGNOSTIC IMPRESSION AND PLAN: The patient with C. dif colitis, overall improvement on po Vanco and Flagyl. Plan to finish therapy with po Vanco 250 q6h for two more weeks with close outpatient follow-up. The patient advised to use probiotic and ( ). MTDD
[2017-01-31] MEDS ORDERED: metroNIDAZOLE 500 MG TAB PO SCH (22:00)
--- NOTE | 2017-02-01 00:56 | P.PN ---
Subjective Principal diagnosis: Acute C. diff colitis Interval history: This a 71-year-old female admitted with acute C. difficile colitis with SIRS, hyponatremia and multiple other medical issues. Maintained on vancomycin and Flagyl. Diarrhea improving. No Nausea, no vomiting. Abdominal pain improving. Soft bland diet initiated today. T-max 101.7. Antibiotics as per infectious disease. Denies chest pain, palpitations or increasing shortness of breath. 01/29/2017 continues on antibiotics as per infectious disease. Diarrhea improving, reports scant small loose stools 2 this morning. No nausea or vomiting. Abdominal pain improved. Afebrile, T-max 100. WBC increased to 16.2. 01/30/2017 Patient's diarrhea improving with more formed stool. No nausea vomiting abdominal pain. Tolerating by mouth diet slowly. Patient has been afebrile and leukocytosis improving. Anticipate discharge in next 24 hours. Objective - Vital Signs Vital signs: Vital Signs Temp 98.1 F 01/30/17 14:52 Pulse 86 01/30/17 14:52 Resp 16 01/30/17 14:52 BP 121/67 01/30/17 14:52 Pulse Ox 96 01/30/17 14:52 Intake & Output 01/30/17 01/30/17 01/31/17 06:59 18:59 06:59 Intake Total 100 Balance 100 Intake: Oral 100 Other: # Voids 1 4 # Bowel Movements 1 - Exam GENERAL: [Sitting up in bed, no acute distress] HEENT: [Pupils equal conjunctiva normal. Oral mucosa moist] NECK: [Supple, no JVD, no carotid bruits, no lymph node enlargement] RESPIRATORY EFFORT:[ Normal] LUNGS: [Bilateral bases diminished, occasional scattered rhonchi, no crackles, no wheezing] CARDIOVASCULAR[ regular S1 and S2, no murmurs ,no rubs, no gallop] GI: [Abdomen soft, nontender, positive bowel sounds. No guarding, no rigidity] PSYCH: [Alert and oriented -3, mood and affect normal.] SKIN: No ulcer, rash, bleeding. NEURO: [No focal deficits, moves all 4 extremities, strength and sensation grossly intact] - Labs CBC & Chem 7: 01/31/17 07:43 01/31/17 07:43 Labs: Abnormal Lab Results - Last 24 Hours (Table) 01/30/17 01/30/17 Range/Units 07:30 07:30 WBC 12.4 H (3.8-10.6) k/uL RBC 3.74 L (3.80-5.40) m/uL Hgb 11.0 L (11.4-16.0) gm/dL Neutrophils # 9.9 H (1.3-7.7) k/uL BUN 3 L (7-17) mg/dL Glucose 129 H (74-99) mg/dL Calcium 8.3 L (8.4-10.2) mg/dL Microbiology - Last 24 Hours (Table) 01/26/17 23:37 Blood Culture - Preliminary Blood No Growth after 72 hours Assessment and Plan Plan: 1. [Acute C. difficile colitis with sepsis. Diarrhea improving 2. [ Hyponatremia, resolved. Plan: Continue on current medication regime ,monitoring and symptomatic treatment. Antibiotics as per infectious disease. Close monitoring of electrolytes with repeat labs ordered for a.m. Increase ambulation as tolerated.
[2017-02-01] MEDS ORDERED: FLUOXETINE HCL 90 MG PO SCH (16:18)
== END 2017-01-31 14:44 | disposition home or self-care (01) | DRG 872 ==
LOC: EC 13:17 → 4MS4W 17:38
PROVIDERS: ADMIT Internal Medicine; ATTEND Internal Medicine
DX: A41.9 Sepsis, unspecified organism (principal); A04.7 Enterocolitis due to Clostridium difficile; E87.1 Hypo-osmolality and hyponatremia; I10 Essential (primary) hypertension; E78.5 Hyperlipidemia, unspecified; E78.00 Pure hypercholesterolemia, unspecified; E86.0 Dehydration; R82.71 Bacteriuria; F41.9 Anxiety disorder, unspecified; Z79.899 Other long term (current) drug therapy; Z90.49 Acquired absence of other specified parts of digestive tract; Z88.0 Allergy status to penicillin
CPT/HCPCS: 36415; 74177; 80048; 80053; 81001; 82150; 83605; 83690; 83735; 85025; 87040; 87086; 87324; 96361; 96365; 96367; 99285

== ENCOUNTER → 2017-02-08 | Outpatient (CLI) | payer MEDICARE ==
[2017-02-08 09:19] LABS: Basophils # (A) 0.1 k/uL (0-0.2); Basophils % (A) 1 %; CH 28.5; CHCM 32.7; Eosinophils # (A) 0.3 k/uL (0-0.7); Eosinophils % (A) 3 %; HCT 41.8 % (34.0-46.0); HGB 13.7 gm/dL (11.4-16.0); Luc # (Auto) 0.24; Luc % (Auto) 2; Lymphocytes # (A) 2.4 k/uL (1.0-4.8); Lymphocytes % (A) 22 %; MCH 28.7 pg (25.0-35.0); MCHC 32.7 g/dL (31.0-37.0); MCV 87.7 fL (80.0-100.0); Mean Platelet Volume 6.9; Monocytes # (A) 0.5 k/uL (0-1.0); Monocytes % (A) 5 %; Neutrophils % (A) 67 %; RBC 4.76 m/uL (3.80-5.40); RDW 13.3 % (11.5-15.5); WBC 10.5 k/uL (3.8-10.6); WBC (Perox) 11.04
[2017-02-08 10:15] LABS: Anion Gap 10 mmol/L; Blood Urea Nitrogen 13 mg/dL (7-17); Calcium 9.9 mg/dL (8.4-10.2); Carbon Dioxide 29 mmol/L (22-30); Chloride 103 mmol/L (98-107); Glucose 111 mg/dL (74-99); Non-African American GFR(MDRD) >60 (>60 ml/min/1.73 sqM); Potassium 4.8 mmol/L (3.5-5.1); Sodium 142 mmol/L (137-145)
== END | disposition home or self-care (01) ==
LOC: LABWHC1 08:32
PROVIDERS: ATTEND Internal Medicine Infectious Disease
DX: A04.7 Enterocolitis due to Clostridium difficile (principal)
CPT/HCPCS: 36415; 80048; 85025

== ENCOUNTER 2021-01-31 11:37 | Inpatient (IN) | payer MEDICARE ==
[2021-01-31] MEDS ORDERED: ACETAMINOPHEN TAB 500 MG TAB PO STA (12:16)
[2021-01-31] MEDS ORDERED: SODIUM CHLORIDE 0.9% 500 ML 500 ML IV ONE (12:16)
--- NOTE | 2021-01-31 12:26 | ED ---
General Adult HPI - General Chief complaint: Nausea/Vomiting/Diarrhea Stated complaint: Fever/Vomiting Time Seen by Provider: 01/31/21 12:04 Source: patient, RN notes reviewed, old records reviewed Mode of arrival: ambulatory Limitations: no limitations - History of Present Illness Initial comments: 75 old female presenting for evaluation of vomiting. Patient had one episode of vomiting last night. She's had low-grade fevers. She was treated for urinary tract infection 3 weeks ago with ciprofloxacin. She does not have urinary symptoms with the exception of maybe some urinary frequency. No flank pain. No anterior abdominal pain. No chest pain or dyspnea. No URI symptoms. - Related Data Home Medications Medication Instructions Recorded Confirmed Albuterol Sulfate [Proair Hfa] 1 - 2 puff INHALATION RT-Q6H PRN 01/26/17 01/26/17 Calcium Carbonate [Calcium] 600 mg PO DAILY 01/26/17 01/26/17 FLUoxetine HCL [PROzac Weekly] 90 mg PO TU 01/26/17 01/26/17 Losartan Potassium [Cozaar] 25 mg PO DAILY 01/26/17 01/26/17 Pravastatin Sodium [Pravachol] 20 mg PO HS 01/26/17 01/26/17 Previous Rx's Medication Instructions Recorded Cholestyramine (with Sugar) 4 gm PO TID BETWEEN MEALS #30 01/31/17 [Questran Packet] packet Famotidine [Pepcid] 20 mg PO BID #60 tab 01/31/17 Vancomycin Oral Solution 250 mg PO Q6HR #280 ml 01/31/17 Allergies Allergy/AdvReac Type Severity Reaction Status Date / Time No Known Allergies Allergy Verified 01/31/21 11:59 Review of Systems ROS Statement: Those systems with pertinent positive or pertinent negative responses have been documented in the HPI. ROS Other: All systems not noted in ROS Statement are negative. Past Medical History Past Medical History: Hyperlipidemia, Hypertension Additional Past Medical History / Comment(s): RECENTLY TX FOR FUNGAL INFECTION TO FOOT WAS ON AN ABX APPROX 6 WEEKS AGO FOR 10 DAYS. PAST BRONCHITIS,ASTIGMATISM History of Any Multi-Drug Resistant Organisms: C-DIFF Date of last positivie culture/infection: 01/26/17 MDRO Source:: STOOL Past Surgical History: Cholecystectomy, Hysterectomy, Tubal Ligation Additional Past Surgical History / Comment(s): bladder suspension SX X3, PARTIAL HYSTERCTOMY THEN A 2ND SX TO REMOVED OVARIES, Past Anesthesia/Blood Transfusion Reactions: No Reported Reaction Past Psychological History: Anxiety Smoking Status: Never smoker Past Alcohol Use History: Occasional Past Drug Use History: None Reported - Past Family History Mother Additional Family Medical History / Comment(s): EMPHYSEMA Father Family Medical History: CVA/TIA, Hypertension General Exam Limitations: no limitations General appearance: alert, in no apparent distress Head exam: Present: atraumatic, normocephalic Eye exam: Present: normal appearance, PERRL ENT exam: Present: mucous membranes dry Neck exam: Present: normal inspection. Absent: tenderness, meningismus Respiratory exam: Present: normal lung sounds bilaterally. Absent: respiratory distress, wheezes Cardiovascular Exam: Present: regular rate, normal rhythm GI/Abdominal exam: Present: soft. Absent: distended, tenderness, guarding, rebound Extremities exam: Present: normal inspection, normal capillary refill. Absent: pedal edema, joint swelling Back exam: Absent: CVA tenderness (R), CVA tenderness (L) Neurological exam: Present: alert, oriented X3, CN II-XII intact. Absent: motor sensory deficit Psychiatric exam: Present: normal affect, normal mood Skin exam: Present: warm, dry, intact. Absent: cyanosis, diaphoretic Course Vital Signs 01/31/21 01/31/21 11:56 13:00 Temperature 100.4 F H 101.8 F H Pulse Rate 101 H Respiratory 18 Rate Blood Pressure 128/72 O2 Sat by Pulse 94 L Oximetry Medical Decision Making - Medical Decision Making 75-year-old female presenting with vomiting, fever, urinary frequency. Workup reveals subtle leukocytosis, 18.3, normal electrolytes, she has significant urinary tract infection with greater than 182 white cells and bacteria in the urine. She had a previous urine culture which was positive for E. coli and was sensitive to ceftriaxone. She's given 2 g ceftriaxone in the emergency department as well as IV fluids. She will be admitted for pyelonephritis given the vomiting and fever. - Lab Data Result diagrams: 01/31/21 12:59 01/31/21 12:59 Lab Results 01/31/21 01/31/21 01/31/21 Range/Units 12:59 12:59 12:59 WBC 18.3 H (3.8-10.6) k/uL RBC 4.46 (3.80-5.40) m/uL Hgb 13.3 (11.4-16.0) gm/dL Hct 39.3 (34.0-46.0) % MCV 88.1 (80.0-100.0) fL MCH 29.8 (25.0-35.0) pg MCHC 33.9 (31.0-37.0) g/dL RDW 13.8 (11.5-15.5) % Plt Count 276 (150-450) k/uL MPV 7.9 Neutrophils % 84 % Lymphocytes % 8 % Monocytes % 7 % Eosinophils % 0 % Basophils % 0 % Neutrophils # 15.4 H (1.3-7.7) k/uL Lymphocytes # 1.4 (1.0-4.8) k/uL Monocytes # 1.2 H (0-1.0) k/uL Eosinophils # 0.0 (0-0.7) k/uL Basophils # 0.0 (0-0.2) k/uL Sodium 133 L (137-145) mmol/L Potassium 4.2 (3.5-5.1) mmol/L Chloride 100 (98-107) mmol/L Carbon Dioxide 25 (22-30) mmol/L Anion Gap 8 mmol/L BUN 15 (7-17) mg/dL Creatinine 0.74 (0.52-1.04) mg/dL Est GFR (CKD-EPI)AfAm >90 (>60 ml/min/1.73 sqM) Est GFR (CKD-EPI)NonAf 81 (>60 ml/min/1.73 sqM) Glucose 113 H (74-99) mg/dL Plasma Lactic Acid Aj (0.7-2.0) mmol/L Calcium 9.8 (8.4-10.2) mg/dL Total Bilirubin 1.0 (0.2-1.3) mg/dL AST 48 H (14-36) U/L ALT 47 H (4-34) U/L Alkaline Phosphatase 83 (38-126) U/L Total Protein 6.8 (6.3-8.2) g/dL Albumin 4.4 (3.5-5.0) g/dL Urine Color Yellow Urine Appearance Turbid H (Clear) Urine pH 6.5 (5.0-8.0) Ur Specific [place] 1.017 (1.001-1.035) Urine Protein 1+ H (Negative) Urine Glucose (UA) Negative (Negative) Urine Ketones Negative (Negative) Urine Blood Small H (Negative) Urine Nitrite Negative (Negative) Urine Bilirubin Negative (Negative) Urine Urobilinogen <2.0 (<2.0) mg/dL Ur Leukocyte Esterase Large H (Negative) Urine RBC 4 (0-5) /hpf Urine WBC >182 H (0-5) /hpf Urine WBC Clumps Many H (None) /hpf Urine Bacteria Rare H (None) /hpf Urine Mucus Rare H (None) /hpf 01/31/21 Range/Units 12:59 WBC (3.8-10.6) k/uL RBC (3.80-5.40) m/uL Hgb (11.4-16.0) gm/dL Hct (34.0-46.0) % MCV (80.0-100.0) fL MCH (25.0-35.0) pg MCHC (31.0-37.0) g/dL RDW (11.5-15.5) % Plt Count (150-450) k/uL MPV Neutrophils % % Lymphocytes % % Monocytes % % Eosinophils % % Basophils % % Neutrophils # (1.3-7.7) k/uL Lymphocytes # (1.0-4.8) k/uL Monocytes # (0-1.0) k/uL Eosinophils # (0-0.7) k/uL Basophils # (0-0.2) k/uL Sodium (137-145) mmol/L Potassium (3.5-5.1) mmol/L Chloride (98-107) mmol/L Carbon Dioxide (22-30) mmol/L Anion Gap mmol/L BUN (7-17) mg/dL Creatinine (0.52-1.04) mg/dL Est GFR (CKD-EPI)AfAm (>60 ml/min/1.73 sqM) Est GFR (CKD-EPI)NonAf (>60 ml/min/1.73 sqM) Glucose (74-99) mg/dL Plasma Lactic Acid Aj 1.1 (0.7-2.0) mmol/L Calcium (8.4-10.2) mg/dL Total Bilirubin (0.2-1.3) mg/dL AST (14-36) U/L ALT (4-34) U/L Alkaline Phosphatase (38-126) U/L Total Protein (6.3-8.2) g/dL Albumin (3.5-5.0) g/dL Urine Color Urine Appearance (Clear) Urine pH (5.0-8.0) Ur Specific [place] (1.001-1.035) Urine Protein (Negative) Urine Glucose (UA) (Negative) Urine Ketones (Negative) Urine Blood (Negative) Urine Nitrite (Negative) Urine Bilirubin (Negative) Urine Urobilinogen (<2.0) mg/dL Ur Leukocyte Esterase (Negative) Urine RBC (0-5) /hpf Urine WBC (0-5) /hpf Urine WBC Clumps (None) /hpf Urine Bacteria (None) /hpf Urine Mucus (None) /hpf Disposition Clinical Impression: Pyelonephritis Disposition: ADMITTED IP TO THIS [facility] Condition: Stable Is patient prescribed a controlled substance at d/c from ED?: No Referrals: Susanne Anton MD [Primary Care Provider] - 1-2 days Decision to Admit Reason: Admit from EC Decision Date: 01/31/21 Decision Time: 13:56
[2021-01-31 13:18] LABS: Appearance,Urine Turbid (Clear); Bacteria,Urine Rare /hpf; Bilirubin,Urine Negative (Negative); Blood,Urine Small (Negative); Color,Urine Yellow; Glucose,Urine (UA) Negative (Negative); Ketones,Urine Negative (Negative); Leukocyte Esterase,Urine Large (Negative); Mucus,Urine Rare /hpf; Nitrite,Urine Negative (Negative); PH, Urine 6.5 (5.0-8.0); Protein,Urine 1+ (Negative); RBC,Urine 4 /hpf (0-5); Specific Gravity,Urine 1.017 (1.001-1.035); Urobilinogen,Urine <2.0 mg/dL (<2.0); WBC,Urine >182 /hpf (0-5)
[2021-01-31 13:24] LABS: Basophils % (A) 0 %; Eosinophils % (A) 0 %; HCT 39.3 % (34.0-46.0); HGB 13.3 gm/dL (11.4-16.0); Lymphocytes # (A) 1.4 k/uL (1.0-4.8); Lymphocytes % (A) 8 %; MCH 29.8 pg (25.0-35.0); MCHC 33.9 g/dL (31.0-37.0); MCV 88.1 fL (80.0-100.0); Mean Platelet Volume 7.9; Monocytes # (A) 1.2 k/uL (0-1.0); Monocytes % (A) 7 %; Neutrophils # (A) 15.4 k/uL (1.3-7.7); Neutrophils % (A) 84 %; Platelet Count 276 k/uL (150-450); RBC 4.46 m/uL (3.80-5.40); RDW 13.8 % (11.5-15.5); WBC 18.3 k/uL (3.8-10.6)
[2021-01-31] MEDS ORDERED: cefTRIAXone IN SWFI 1,000 MG/10 ML SYRINGE IVP STA (13:33)
[2021-01-31 13:39] LABS: ALT 47 U/L (4-34); AST 48 U/L (14-36); African American GFR (CKD) >90 (>60 ml/min/1.73 sqM); Albumin 4.4 g/dL (3.5-5.0); Alkaline Phosphatase 83 U/L (38-126); Anion Gap 8 mmol/L; Blood Urea Nitrogen 15 mg/dL (7-17); Calcium 9.8 mg/dL (8.4-10.2); Carbon Dioxide 25 mmol/L (22-30); Chloride 100 mmol/L (98-107); Glucose 113 mg/dL (74-99); Non-African American GFR(CKD) 81 (>60 ml/min/1.73 sqM); Sodium 133 mmol/L (137-145); Total Protein 6.8 g/dL (6.3-8.2)
[2021-01-31 13:41] LABS: Potassium 4.2 mmol/L (3.5-5.1)
[2021-01-31] MEDS ORDERED: NALOXONE 0.4 MG/ML 1 ML VIAL IV PRN (13:53)
[2021-01-31] MEDS: SODIUM CHLORIDE 0.9% 1,000 ML IV SCH ×2 (14:19→19:35)
[2021-01-31] MEDS: ACETAMINOPHEN TAB 325 MG TAB PO PRN (19:58)
[2021-01-31] MEDS: ASPIRIN 81 MG PO SCH (22:34)
[2021-01-31] MEDS: PRAVASTATIN SODIUM 20 MG TAB PO SCH (22:35)
--- NOTE | 2021-01-31 22:52 | P.HPIM ---
History of Present Illness H&P Date: 01/31/21 Chief Complaint: Failed outpatient treatment for UTI Ms. Diaz is a 75-year-old female with the past medical history of hypertension, hyperlipidemia coming to the hospital with low-grade fevers. Patient states that she was recently treated for urinary tract infection 3 weeks ago with ciprofloxacin and had mild resolution of her but last night she noticed increased frequency of urination. She also states that she was nauseous and mild chills at home. She also had couple of episodes of vomiting at home. Patient denies having any suprapubic or low back pain. She denies noticing any blood in her urine. Patient denied having any urological procedures done recently. She denies having any chest pain or palpitations. No cough or difficulty in breathing. She denies having any abdominal pain, diarrhea or constipation. In the ER patient had a T-max of 101.8, heart rate 73, respiratory rate 18, blood pressure 118/59, saturating at 98% on room air. She had a urine analysis done showing negative nitrites, large leukocyte esterase, more than 182 WBCs with WBC clumps. On reviewing her a absolute white count of 18.3, hemoglobin 13.3, platelets 276. Sodium 133, potassium 4.2, chloride 100, bicarb 25, BUN 15, creatinine 0.74. AST 48, ALT 47. Review of Systems REVIEW OF SYSTEMS: CONSTITUTIONAL: + fever and generalized weakness HEENT: No headache, no neck stiffness, no blurring of vision CARDIOVASCULAR: No chest pain, no palpitations PULMONARY: No cough or difficulty in breathing GASTROINTESTINAL: No Abdominal pain nausea vomiting or diarrhea NEUROLOGICAL: No weakness of extremities HEMATOLOGICAL: Denies any bleeding or petechiae. GENITOURINARY: As per HPI MUSCULOSKELETAL/RHEUMATOLOGICAL: Denies any joint pain, swelling, or any muscle pain. ENDOCRINE: Denies polyuria polydipsia or heat or cold intolerance The rest of the 14-point review of systems is negative. Past Medical History Past Medical History: Hyperlipidemia, Hypertension Additional Past Medical History / Comment(s): . History of Any Multi-Drug Resistant Organisms: C-DIFF Date of last positivie culture/infection: 01/26/17 MDRO Source:: STOOL Past Surgical History: Cholecystectomy, Hysterectomy, Tubal Ligation Additional Past Surgical History / Comment(s): bladder suspension SX X3, PARTIAL HYSTERCTOMY THEN A 2ND SX TO REMOVED OVARIES, Past Anesthesia/Blood Transfusion Reactions: No Reported Reaction Past Psychological History: Anxiety Smoking Status: Never smoker Past Alcohol Use History: Occasional Additional Past Alcohol Use History / Comment(s): PT DENIES ANY DEPRESSION OR THOUGHTS OF WANTING TO HARM SELF. Past Drug Use History: None Reported - Past Family History Mother Additional Family Medical History / Comment(s): EMPHYSEMA Father Family Medical History: CVA/TIA, Hypertension Medications and Allergies Home Medications Medication Instructions Recorded Confirmed Type Pravastatin Sodium [Pravachol] 20 mg PO HS 01/26/17 01/31/21 History Aspirin EC [Ecotrin Low Dose] 81 mg PO HS 01/31/21 01/31/21 History Cranberry Fruit Extract [Cranberry] 500 mg PO HS 01/31/21 01/31/21 History Losartan [Cozaar] 50 mg PO DAILY 01/31/21 01/31/21 History Vortioxetine Hydrobromide 20 mg PO DAILY 01/31/21 01/31/21 History [Trintellix] Allergies Allergy/AdvReac Type Severity Reaction Status Date / Time No Known Allergies Allergy Verified 01/31/21 14:06 Physical Exam Vitals: Vital Signs Temp Pulse Pulse Resp BP BP Pulse Ox 01/31/21 14:50 98.8 F 78 16 109/63 95 01/31/21 14:19 100.6 F H 73 18 118/59 98 01/31/21 13:00 101.8 F H 01/31/21 11:56 100.4 F H 101 H 18 128/72 94 L Intake and Output 01/31/21 01/31/21 01/31/21 06:59 14:59 22:59 Other: # Voids 2 Weight 68.039 kg PHYSICAL EXAMINATION: GENERAL: Comfortably lying up in the bed appears to be no acute distress. HEENT: Pupils are round and equally reacting to light. EOMI. No scleral icterus. No conjunctival pallor. CARDIOVASCULAR: S1 and S2 present. No murmurs, rubs, or gallops. PULMONARY: Bilateral breath sounds positive. No wheeze or crackles.. ABDOMEN: Soft,non -tender, normal bowel sounds. No guarding or rigidity. No CVA tenderness. MUSCULOSKELETAL: No joint swelling or deformity. EXTREMITIES: No edema NEUROLOGICAL: Gross neurological examination did not reveal any focal deficits. SKIN:No rash Results CBC & Chem 7: 01/31/21 12:59 01/31/21 12:59 Labs: Abnormal Lab Results - Last 24 Hours (Table) 01/31/21 01/31/21 01/31/21 Range/Units 12:59 12:59 12:59 WBC 18.3 H (3.8-10.6) k/uL Neutrophils # 15.4 H (1.3-7.7) k/uL Monocytes # 1.2 H (0-1.0) k/uL Sodium 133 L (137-145) mmol/L Glucose 113 H (74-99) mg/dL AST 48 H (14-36) U/L ALT 47 H (4-34) U/L Urine Appearance Turbid H (Clear) Urine Protein 1+ H (Negative) Urine Blood Small H (Negative) Ur Leukocyte Esterase Large H (Negative) Urine WBC >182 H (0-5) /hpf Urine WBC Clumps Many H (None) /hpf Urine Bacteria Rare H (None) /hpf Urine Mucus Rare H (None) /hpf Microbiology - Last 24 Hours (Table) 01/31/21 12:59 Urine Culture - Preliminary Urine,Voided Thrombosis Risk Factor Assmnt - Choose All That Apply Each Factor Represents 1 point: Obesity (BMI >25) Each Risk Factor Represents 2 Points: Age 61-74 years Thrombosis Risk Factor Assessment Total Risk Factor Score: 3 Thrombosis Risk Factor Assessment Level: Moderate Risk Assessment and Plan Assessment: ASSESSMENT Sepsis secondary to UTI Failed outpatient UTI treatment Hypertension Hyperlipidemia History of bladder suspension surgery x3 History of partial hysterectomy History of anxiety PLAN: Patient was given 2 g of ceftriaxone in the ED after obtaining urine cultures and blood cultures. We will continue the patient on 2 g of ceftriaxone. Reviewed patient's urine cultures from the past, urine culture from 01/12/2021 showing E. coli with thomason susceptibility. Will follow on urine cultures and blood cultures. Will also order renal ultrasound. Continue with IV fluids. Will obtain a.m. labs. Further recommendations to follow depending on the progress of the patient.
[2021-01-31] MEDS: IBUPROFEN 400 MG TAB PO PRN (23:14)
[2021-01-31] MEDS: HEPARIN SODIUM,PORCINE/PF 5,000 UNIT/0.5 ML SYRINGE SQ SCH (23:15)
--- NOTE | 2021-01-31 23:44 | US ---
EXAMINATION TYPE: US renals and bladder DATE OF EXAM: 01/31/2021 COMPARISON: CT CLINICAL HISTORY: ?pyleonephritis. Fever, recurrent UTI EXAM MEASUREMENTS: Right Kidney: 10.6 x 4.7 x 4.6 cm Left Kidney: 10.5 x 4.8 x 4.7 cm Right Kidney: Appeared wnl Left Kidney: Probable calculus lower pole as visualized on prior CT= 0.9 cm Bladder: ?thickened wall Bilateral Jets seen: No There is no evidence for hydronephrosis at this point in time. No nephrolithiasis is seen. No judith s are identified. The urinary bladder is anechoic. Bilateral ureteral jets are seen. IMPRESSION: Nonobstructing left renal calculus. No evidence of suspicious renal mass. No evidence of bladder mass.
[2021-02-01 06:14] LABS: Basophils # (A) 0.1 k/uL (0-0.2); Basophils % (A) 1 %; Eosinophils # (A) 0.1 k/uL (0-0.7); Eosinophils % (A) 1 %; HCT 34.2 % (34.0-46.0); HGB 11.5 gm/dL (11.4-16.0); Lymphocytes # (A) 1.6 k/uL (1.0-4.8); Lymphocytes % (A) 16 %; MCH 30.3 pg (25.0-35.0); MCHC 33.7 g/dL (31.0-37.0); MCV 89.9 fL (80.0-100.0); Monocytes # (A) 0.7 k/uL (0-1.0); Monocytes % (A) 7 %; Neutrophils # (A) 7.4 k/uL (1.3-7.7); Neutrophils % (A) 74 %; Platelet Count 199 k/uL (150-450); RDW 13.6 % (11.5-15.5)
[2021-02-01] MEDS: SODIUM CHLORIDE 0.9% 1,000 ML IV SCH ×4 (07:30→18:10)
[2021-02-01] MEDS: VORTIOXETINE HYDROBROMIDE 20 MG TABLET PO SCH (09:02)
[2021-02-01] MEDS: HEPARIN SODIUM,PORCINE/PF 5,000 UNIT/0.5 ML SYRINGE SQ SCH ×2 (09:02→16:19)
[2021-02-01] MEDS: LOSARTAN 50 MG TAB PO SCH (09:02)
[2021-02-01] MEDS: IBUPROFEN 400 MG TAB PO PRN (12:01)
[2021-02-01 12:46] LABS: African American GFR (CKD) 99.6 (60.0-200.0); Albumin 3.5 g/dL (3.80-4.90); Albumin/Globulin Ratio 2.19 (1.60-3.17); Anion Gap 7.8 mmol/L (4.00-12.00); BUN/Creat Ratio 17.14 Ratio (12.00-20.00); Calcium 8.4 mg/dL (8.7-10.3); Carbon Dioxide 24.2 mmol/L (21.6-31.8); Globulin 1.6 g/dL (1.6-3.3); Potassium 3.8 mmol/L (3.5-5.5); Total Bilirubin 0.6 mg/dL (0.3-1.2); Total Protein 5.1 g/dL (6.2-8.2)
[2021-02-01] MEDS: ACETAMINOPHEN TAB 325 MG TAB PO PRN (14:16)
[2021-02-01] MEDS: LACTOBACILLUS ACIDOPH & BULGAR 1 EACH PACKET PO SCH ×2 (16:19→21:05)
[2021-02-01] MEDS: ASPIRIN 81 MG PO SCH (21:04)
[2021-02-01] MEDS: PRAVASTATIN SODIUM 20 MG TAB PO SCH (21:05)
--- NOTE | 2021-02-01 22:55 | P.PN ---
Subjective Progress Note Date: 02/01/21 Principal diagnosis: Sepsis due to UTI Ms. Diaz is a 75-year-old female with the past medical history of hypertension, hyperlipidemia coming to the hospital with low-grade fevers. Patient states that she was recently treated for urinary tract infection 3 weeks ago with ciprofloxacin and had mild resolution of her but last night she noticed increased frequency of urination. She also states that she was nauseous and mild chills at home. She also had couple of episodes of vomiting at home. Patient denies having any suprapubic or low back pain. She denies noticing any blood in her urine. Patient denied having any urological procedures done recently. She denies having any chest pain or palpitations. No cough or difficulty in breathing. She denies having any abdominal pain, diarrhea or constipation. In the ER patient had a T-max of 101.8, heart rate 73, respiratory rate 18, blood pressure 118/59, saturating at 98% on room air. She had a urine analysis done showing negative nitrites, large leukocyte esterase, more than 182 WBCs with WBC clumps. On reviewing her a absolute white count of 18.3, hemoglobin 13.3, platelets 276. Sodium 133, potassium 4.2, chloride 100, bicarb 25, BUN 15, creatinine 0.74. AST 48, ALT 47. On 02/01/2021 -patient is seen and examined at the bedside. Patient states that she feels much better in terms of suprapubic discomfort. She states that she felt warm this morning, when they checked her temperature she had a fever so they gave her cooling blankets and currently she is afebrile. Patient denied having any chest pain or palpitations. No cough or difficulty breathing. No abdominal pain nausea vomiting or diarrhea. On reviewing her vitals T-max of 100.2 this morning, heart rate of 74, respiratory 18, blood pressure 124/92, saturating at 97% on room air. On reviewing the labs white count of 10, hemoglobin 11.5, platelets 199. Sodium 142, potassium 3.8, chloride 110, bicarb 24, BUN 12, creatinine 0.7. On 02/02/2021 -patient is seen and examined at the bedside. No acute events reported by nursing staff overnight. Patient states that her fevers are trending down. She denies having any dysuria or hematuria. She denies having any low back pain. Patient has no chest pain or palpitations. No cough or difficulty breathing. No abdominal symptoms. On reviewing the vitals temperature of 98.3, heart rate 74, respiratory rate 18, blood pressure 124/72, saturating at 97% on room air. Reviewing the labs white count of 6.1, hemoglobin 10.7, platelets 174. Sodium 140, potassium 3.6, chloride 109, bicarb 23, BUN 8, creatinine 0.8. Urine culture is positive for E. coli with thomason susceptibility. Patient's medications have been reviewed she continues to be on ceftriaxone for her UTI. Objective - Vital Signs Vital signs: Vital Signs Temp 97.8 F 02/01/21 04:59 Pulse 70 02/01/21 04:59 Resp 16 02/01/21 04:59 BP 120/73 02/01/21 04:59 Pulse Ox 98 02/01/21 04:59 Intake & Output 01/31/21 02/01/21 02/01/21 18:59 06:59 18:59 Weight 68.039 kg Other: Voiding Method Toilet Toilet # Voids 2 3 - Exam PHYSICAL EXAMINATION: GENERAL: Comfortably lying up in the bed appears to be no acute distress. HEENT: No conjunctival pallor. CARDIOVASCULAR: S1 and S2 present. No murmurs, rubs, or gallops. PULMONARY: Bilateral breath sounds positive. No wheeze or crackles.. ABDOMEN: Soft,non -tender, normal bowel sounds. No guarding or rigidity. No CVA tenderness. MUSCULOSKELETAL: No joint swelling or deformity. EXTREMITIES: No edema NEUROLOGICAL: Gross neurological examination did not reveal any focal deficits. SKIN:No rash - Labs CBC & Chem 7: 02/02/21 05:01 02/02/21 05:01 Labs: Abnormal Lab Results - Last 24 Hours (Table) 01/31/21 01/31/21 01/31/21 Range/Units 12:59 12:59 12:59 WBC 18.3 H (3.8-10.6) k/uL Neutrophils # 15.4 H (1.3-7.7) k/uL Monocytes # 1.2 H (0-1.0) k/uL Sodium 133 L (137-145) mmol/L Glucose 113 H (74-99) mg/dL AST 48 H (14-36) U/L ALT 47 H (4-34) U/L Urine Appearance Turbid H (Clear) Urine Protein 1+ H (Negative) Urine Blood Small H (Negative) Ur Leukocyte Esterase Large H (Negative) Urine WBC >182 H (0-5) /hpf Urine WBC Clumps Many H (None) /hpf Urine Bacteria Rare H (None) /hpf Urine Mucus Rare H (None) /hpf Microbiology - Last 24 Hours (Table) 01/31/21 12:59 Urine Culture - Preliminary Urine,Voided Assessment and Plan Assessment: ASSESSMENT Sepsis secondary to UTI Failed outpatient UTI treatment Hypertension Hyperlipidemia History of bladder suspension surgery x3 History of partial hysterectomy History of anxiety PLAN: Patient was given 2 g of ceftriaxone in the ED after obtaining urine cultures and blood cultures. We will continue the patient on 2 g of ceftriaxone. Patient's urine culture is positive for gram-negative bacilli. Patient had a renal ultrasound showing no evidence of hydronephrosis, nonobstructing left renal calculi measuring 9 mm. Will follow on blood cultur es. Continue with IV fluids. Will obtain a.m. labs. Further recommendations to follow depending on the progress of the patient.
[2021-02-02] MEDS: HEPARIN SODIUM,PORCINE/PF 5,000 UNIT/0.5 ML SYRINGE SQ SCH ×3 (00:41→16:29)
[2021-02-02] MEDS: ONDANSETRON 4 MG/2 ML VIAL IVP PRN (01:19)
[2021-02-02] MEDS: SODIUM CHLORIDE 0.9% 1,000 ML IV SCH ×3 (01:23→17:21)
[2021-02-02] MEDS: ACETAMINOPHEN TAB 325 MG TAB PO PRN ×2 (04:21→19:30)
[2021-02-02 05:59] LABS: Basophils % (A) 0 %; Eosinophils # (A) 0.1 k/uL (0-0.7); Eosinophils % (A) 2 %; HCT 31.2 % (34.0-46.0); HGB 10.7 gm/dL (11.4-16.0); Lymphocytes # (A) 1.4 k/uL (1.0-4.8); Lymphocytes % (A) 23 %; MCH 30.4 pg (25.0-35.0); MCHC 34.2 g/dL (31.0-37.0); MCV 88.9 fL (80.0-100.0); Mean Platelet Volume 7.9; Monocytes # (A) 0.4 k/uL (0-1.0); Monocytes % (A) 7 %; Neutrophils # (A) 3.9 k/uL (1.3-7.7); Neutrophils % (A) 65 %; Platelet Count 174 k/uL (150-450); RDW 13.6 % (11.5-15.5); WBC 6.1 k/uL (3.8-10.6)
--- NOTE | 2021-02-02 08:14 | P.CONS ---
History of Present Illness - Reason for Consult Consult date: 02/01/21 Pyelonephritis Requesting physician: Vanessa Randolph - Chief Complaint Vomiting 1 day - History of Present Illness Patient is a 75-year-old female who seemed to have a problem with with recurrent urinary infection over the last few months in this patient has been recently started on antibiotic by her primary care physician patient presented to the [facility] ER yesterday morning for evaluation of vomiting that started the night before presentation to the hospital patient also complaining of low-grade fever patient did have urinary frequency no significant burning suprapubic or flank pain denies having any hematuria patient has been running a low-grade fever and did have some chills on presentation to the hospital but did have fever of 101 F patient did have white count of 18,000 with a left shift kidney function was normal urine was positive with large leukocyte esterase more than 1 2 WBC urine culture has been repeated which are currently pending patient did have a renal ultrasound nonobstructing left renal calculus no suspicious renal mass or bladder mass patient has been treated with Rocephin 2 g daily infectious disease was consulted for further management of antibiotic therapy, patient to have a history of C. difficile few years ago currently with no diarrhea Review of Systems Positive point has been mentioned in the HPI rest of the systems are negative Past Medical History Past Medical History: Hyperlipidemia, Hypertension Additional Past Medical History / Comment(s): . History of Any Multi-Drug Resistant Organisms: C-DIFF Year Discovered:: 01/26/17 MDRO Source:: STOOL Past Surgical History: Cholecystectomy, Hysterectomy, Tubal Ligation Additional Past Surgical History / Comment(s): bladder suspension SX X3, PARTIAL HYSTERCTOMY THEN A 2ND SX TO REMOVED OVARIES, Past Anesthesia/Blood Transfusion Reactions: No Reported Reaction Past Psychological History: Anxiety Smoking Status: Never smoker Past Alcohol Use History: Occasional Additional Past Alcohol Use History / Comment(s): PT DENIES ANY DEPRESSION OR THOUGHTS OF WANTING TO HARM SELF. Past Drug Use History: None Reported - Past Family History Mother Additional Family Medical History / Comment(s): EMPHYSEMA Father Family Medical History: CVA/TIA, Hypertension Medications and Allergies Home Medications Medication Instructions Recorded Confirmed Type Pravastatin Sodium [Pravachol] 20 mg PO HS 01/26/17 01/31/21 History Aspirin EC [Ecotrin Low Dose] 81 mg PO HS 01/31/21 01/31/21 History Cranberry Fruit Extract [Cranberry] 500 mg PO HS 01/31/21 01/31/21 History Losartan [Cozaar] 50 mg PO DAILY 01/31/21 01/31/21 History Vortioxetine Hydrobromide 20 mg PO DAILY 01/31/21 01/31/21 History [Trintellix] Allergies Allergy/AdvReac Type Severity Reaction Status Date / Time No Known Allergies Allergy Verified 01/31/21 14:06 Physical Exam Vitals: Vital Signs Temp Pulse Pulse Resp BP BP Pulse Ox 02/01/21 11:41 100.2 F H 84 16 134/68 98 02/01/21 04:59 97.8 F 70 16 120/73 98 01/31/21 23:05 101 F H 01/31/21 21:48 102.3 F H 01/31/21 20:00 102.2 F H 96 16 148/81 97 01/31/21 14:50 98.8 F 78 16 109/63 95 01/31/21 14:19 100.6 F H 73 18 118/59 98 01/31/21 13:00 101.8 F H Intake and Output 01/31/21 02/01/21 02/01/21 22:59 06:59 14:59 Other: Voiding Method Toilet Toilet # Voids 2 3 GENERAL DESCRIPTION: An elderly female lying in bed, no distress. No tachypnea or accessory muscle of respiration use. HEENT: Shows Pallor , no scleral icterus. Oral mucous membrane is dry. No pharyngeal erythema or thrush NECK: Trachea central, no thyromegaly. LUNGS: Unlabored breathing. Clear to auscultation anteriorly. No wheeze or crackle. HEART: S1, S2, regular rate and rhythm. No loud murmur ABDOMEN: Soft, no tenderness , guarding or rigidity, no organomegaly EXTREMITIES: No edema of feet. SKIN: No rash, no masses palpable. NEUROLOGICAL: The patient is awake, alert, oriented x3, mood and affect normal. Results CBC & Chem 7: 02/02/21 05:01 02/01/21 05:35 Labs: Abnormal Lab Results - Last 24 Hours (Table) 01/31/21 01/31/21 01/31/21 Range/Units 12:59 12:59 12:59 WBC 18.3 H (3.8-10.6) k/uL Neutrophils # 15.4 H (1.3-7.7) k/uL Monocytes # 1.2 H (0-1.0) k/uL Sodium 133 L (137-145) mmol/L Chloride (96-109) mmol/L Glucose 113 H (74-99) mg/dL Calcium (8.7-10.3) mg/dL AST 48 H (14-36) U/L ALT 47 H (4-34) U/L Total Protein (6.2-8.2) g/dL Albumin (3.80-4.90) g/dL Urine Appearance Turbid H (Clear) Urine Protein 1+ H (Negative) Urine Blood Small H (Negative) Ur Leukocyte Esterase Large H (Negative) Urine WBC >182 H (0-5) /hpf Urine WBC Clumps Many H (None) /hpf Urine Bacteria Rare H (None) /hpf Urine Mucus Rare H (None) /hpf 02/01/21 Range/Units 05:35 WBC (3.8-10.6) k/uL Neutrophils # (1.3-7.7) k/uL Monocytes # (0-1.0) k/uL Sodium (137-145) mmol/L Chloride 110 H (96-109) mmol/L Glucose (74-99) mg/dL Calcium 8.4 L (8.7-10.3) mg/dL AST 38 H (14-36) U/L ALT 49 H (4-34) U/L Total Protein 5.1 L (6.2-8.2) g/dL Albumin 3.50 L (3.80-4.90) g/dL Urine Appearance (Clear) Urine Protein (Negative) Urine Blood (Negative) Ur Leukocyte Esterase (Negative) Urine WBC (0-5) /hpf Urine WBC Clumps (None) /hpf Urine Bacteria (None) /hpf Urine Mucus (None) /hpf Microbiology - Last 24 Hours (Table) 01/31/21 12:59 Urine Culture - Preliminary Urine,Voided Assessment and Plan Assessment: 1-patient presented to hospital with sepsis in this patient who did have a fever elevated white count urinary symptoms significantly positive UA likely secondary to the pyelonephritis in this patient found to have a recurrent UTI over the last few months with evidence of a left-sided renal stone could be the source of these recurrent infection (1) Sepsis Current Visit: Yes Status: Acute Code(s): A41.9 - SEPSIS, UNSPECIFIED ORGANISM SNOMED Code(s): 99186473 (2) Pyelonephritis Current Visit: Yes Status: Acute Code(s): N12 - TUBULO-INTERSTITIAL NEPHRITIS, NOT SPCF ACUTE OR CHRONIC SNOMED Code(s): 57879813 Plan: 1-patient may benefit from urology evaluation and treatment of underlying renal stone hopefully that will prevent her recurrent UTIs in the future 2-Rocephin 2 g daily to continue 3-gentle IV fluid We will follow on clinical condition and cultures to further adjust medication if needed Thank you for this consultation we will follow the patient along with you Time with Patient: Greater than 30
[2021-02-02] MEDS: LACTOBACILLUS ACIDOPH & BULGAR 1 EACH PACKET PO SCH ×3 (08:45→21:21)
[2021-02-02] MEDS: LOSARTAN 50 MG TAB PO SCH (08:45)
[2021-02-02] MEDS: VORTIOXETINE HYDROBROMIDE 20 MG TABLET PO SCH (08:48)
[2021-02-02 12:15] LABS: African American GFR (CKD) 84.8 (60.0-200.0); Calcium 8.3 mg/dL (8.7-10.3); Non-African American GFR(CKD) 73.1 (60.0-200.0); Potassium 3.6 mmol/L (3.5-5.5)
--- NOTE | 2021-02-02 13:51 | PN ---
PROGRESS NOTE DATE OF SERVICE: 02/02/2021 REASON FOR FOLLOWUP: Pyelonephritis, complicated UTI. INTERVAL HISTORY: The patient's overall fever pattern has improved. The patient is feeling better. Did have an episode of nausea but no vomiting. No chest pain, shortness of breath or cough. No abdominal pain or diarrhea. PHYSICAL EXAMINATION: Blood pressure 126/76, pulse of 64, temperature 98.7. She is 97% on room air. GENERAL DESCRIPTION: General description is an elderly female up in the chair in no distress. RESPIRATORY SYSTEM: Unlabored breathing. Clear to auscultation anteriorly. HEART: S1, S2. Regular rate and rhythm. ABDOMEN: Soft. No tenderness. LABS: Hemoglobin is 10.7, white count 6.1. BUN of 8, creatinine 0.8. Urine showing Gram- negative. Blood culture has been negative. DIAGNOSTIC IMPRESSION AND PLAN: Patient with a gram-negative urinary tract infection with recurrent urinary tract infections. Source possible left renal stone. Treatment of his and recurrent UTIs. Patient responded to Rocephin; to continue while waiting for the culture to finalize and monitor clinical course closely. MMODL / IJN: [id number] /
[2021-02-02] MEDS: ASPIRIN 81 MG PO SCH (21:21)
[2021-02-02] MEDS: PRAVASTATIN SODIUM 20 MG TAB PO SCH (21:21)
--- NOTE | 2021-02-02 23:10 | P.PN ---
Subjective Progress Note Date: 02/02/21 Principal diagnosis: Sepsis due to UTI Ms. Diaz is a 75-year-old female with the past medical history of hypertension, hyperlipidemia coming to the hospital with low-grade fevers. Patient states that she was recently treated for urinary tract infection 3 weeks ago with ciprofloxacin and had mild resolution of her but last night she noticed increased frequency of urination. She also states that she was nauseous and mild chills at home. She also had couple of episodes of vomiting at home. Patient denies having any suprapubic or low back pain. She denies noticing any blood in her urine. Patient denied having any urological procedures done recently. She denies having any chest pain or palpitations. No cough or difficulty in breathing. She denies having any abdominal pain, diarrhea or constipation. In the ER patient had a T-max of 101.8, heart rate 73, respiratory rate 18, blood pressure 118/59, saturating at 98% on room air. She had a urine analysis done showing negative nitrites, large leukocyte esterase, more than 182 WBCs with WBC clumps. On reviewing her a absolute white count of 18.3, hemoglobin 13.3, platelets 276. Sodium 133, potassium 4.2, chloride 100, bicarb 25, BUN 15, creatinine 0.74. AST 48, ALT 47. On 02/02/2021 -patient is seen and examined at the bedside. Patient states that she feels much better in terms of suprapubic discomfort. She states that she felt warm this morning, when they checked her temperature she had a fever so they gave her cooling blankets and currently she is afebrile. Patient denied having any chest pain or palpitations. No cough or difficulty breathing. No abdominal pain nausea vomiting or diarrhea. On reviewing her vitals T-max of 100.2 this morning, heart rate of 74, respiratory 18, blood pressure 124/92, saturating at 97% on room air. On reviewing the labs white count of 10, hemoglobin 11.5, platelets 199. Sodium 142, potassium 3.8, chloride 110, bicarb 24, BUN 12, creatinine 0.7. Patient's medications have been reviewed Objective - Vital Signs Vital signs: Vital Signs Temp 99.7 F H 02/02/21 04:17 Pulse 81 02/02/21 04:17 Resp 16 02/02/21 04:17 BP 122/73 02/02/21 04:17 Pulse Ox 95 02/02/21 04:17 Intake & Output 02/01/21 02/02/21 02/02/21 18:59 06:59 18:59 Intake Total 1540 2100 Balance 1540 2100 Intake: Intake, IV Titration 1540 1560 Amount Sodium Chloride 0.9% 1, 1490 1560 000 ml @ 130 mls/hr IV . [id number] [facility] Rx#:[id number] cefTRIAXone 2 gm In 50 Sodium Chloride 0.9% 50 ml @ 100 mls/hr IVPB Q24HR [facility] Rx#:[id number] Oral 540 Other: Voiding Method Toilet Toilet Toilet # Voids 3 4 - Labs CBC & Chem 7: 02/03/21 05:30 02/03/21 05:30 Labs: Abnormal Lab Results - Last 24 Hours (Table) 02/01/21 02/02/21 Range/Units 05:35 05:01 RBC 3.50 L (3.80-5.40) m/uL Hgb 10.7 L (11.4-16.0) gm/dL Hct 31.2 L (34.0-46.0) % Chloride 110 H (96-109) mmol/L Calcium 8.4 L (8.7-10.3) mg/dL AST 38 H (13-35) U/L ALT 49 H (8-44) U/L Total Protein 5.1 L (6.2-8.2) g/dL Albumin 3.50 L (3.80-4.90) g/dL Microbiology - Last 24 Hours (Table) 01/31/21 13:02 Blood Culture - Preliminary Blood No Growth after 24 hours 01/31/21 12:59 Urine Culture - Preliminary Urine,Voided Gram Neg Bacilli 01/31/21 13:02 Blood Culture - Preliminary Blood No Growth after 24 hours Assessment and Plan Assessment: ASSESSMENT Sepsis secondary to UTI Failed outpatient UTI treatment Hypertension Hyperlipidemia History of bladder suspension surgery x3 History of partial hysterectomy History of anxiety PLAN: Patient is continued on ceftriaxone for her UTI, urine cultures positive for E. coli with thomason susceptibility. Patient's temperature has been trending down. White count has trended down from 18 to 6. She had a renal ultrasound showing 0.9 cm left renal calculus in the lower pole. As the patient is having recurrent UTIs and history of renal calculus urology has been consulted. Blood cultures have been negative so far. Continue with the rest of her medication regimen. Further recommendations to follow depending on the progress of the patient.
[2021-02-03] MEDS: HEPARIN SODIUM,PORCINE/PF 5,000 UNIT/0.5 ML SYRINGE SQ SCH ×3 (00:53→15:41)
[2021-02-03] MEDS: IBUPROFEN 400 MG TAB PO PRN (03:27)
[2021-02-03] MEDS: SODIUM CHLORIDE 0.9% 1,000 ML IV SCH ×2 (03:28→08:59)
[2021-02-03 06:26] LABS: Basophils % (A) 0 %; Eosinophils # (A) 0.2 k/uL (0-0.7); Eosinophils % (A) 2 %; HCT 34.6 % (34.0-46.0); HGB 11.5 gm/dL (11.4-16.0); Lymphocytes # (A) 1.1 k/uL (1.0-4.8); Lymphocytes % (A) 11 %; MCHC 33.2 g/dL (31.0-37.0); MCV 90.3 fL (80.0-100.0); Mean Platelet Volume 8.6; Monocytes # (A) 0.6 k/uL (0-1.0); Monocytes % (A) 6 %; Neutrophils # (A) 8.3 k/uL (1.3-7.7); Neutrophils % (A) 80 %; Platelet Count 216 k/uL (150-450); RBC 3.83 m/uL (3.80-5.40); RDW 13.4 % (11.5-15.5); WBC 10.5 k/uL (3.8-10.6)
[2021-02-03] MEDS: LACTOBACILLUS ACIDOPH & BULGAR 1 EACH PACKET PO SCH ×3 (08:58→21:36)
[2021-02-03] MEDS: LOSARTAN 50 MG TAB PO SCH (08:58)
[2021-02-03] MEDS: VORTIOXETINE HYDROBROMIDE 20 MG TABLET PO SCH (08:59)
[2021-02-03 10:08] LABS: Potassium 3.5 mmol/L (3.5-5.5)
[2021-02-03 10:09] LABS: African American GFR (CKD) 99.6 (60.0-200.0); Anion Gap 9.5 mmol/L (4.00-12.00); BUN/Creat Ratio 14.29 Ratio (12.00-20.00); Calcium 8.4 mg/dL (8.7-10.3); Carbon Dioxide 22.5 mmol/L (21.6-31.8)
[2021-02-03] MEDS: ONDANSETRON 4 MG/2 ML VIAL IVP PRN ×2 (11:36→21:51)
[2021-02-03] MEDS: ACETAMINOPHEN TAB 325 MG TAB PO PRN ×2 (12:26→21:35)
[2021-02-03] MEDS: DOCUSATE 100 MG CAP PO SCH ×2 (12:26→21:36)
[2021-02-03] MEDS: IOPAMIDOL CONTRAST (ORAL USE) VIAL PO PRN ×2 (12:29→13:35)
--- NOTE | 2021-02-03 14:42 | CT ---
EXAMINATION TYPE: CT abdomen pelvis w con DATE OF EXAM: 02/03/2021 COMPARISON: 01/26/2017 HISTORY: abdominal/flank pain, vomiting, fever CT DLP: 912.7 mGycm CONTRAST: CT scan of the abdomen and pelvis is performed with Oral Contrast and with IV Contrast, patient injec maira with 100 mL of Isovue 300. FINDINGS: LUNG BASES-: Bilateral pleural effusions and compressive atelectasis. LIVER/GB: 2.6 cm cyst periphery of the right hepatic lobe is unchanged. No new lesions seen. The gall bladder surgically absent. Biliary tree is of normal caliber. PANCREAS: No inflammation. No distinct mass. SPLEEN: No splenic enlargement. No lesion seen. ADRENALS: No nodule. No thickening. KIDNEYS/BLADDER: 8.2 mm right UPJ calculus resulting in mild to moderate left-sided hydronephrosis. A dditional calculi mid to lower pole left kidney. Hepatic steatosis. No distinct renal mass. Urinary bladder grossly unremarkable. BOWEL: Normal appendix. Normal bowel caliber. No inflammation. GENITAL ORGANS: No gross abnormality. LYMPH NODES: No greater than 1cm abdominal or pelvic lymph nodes are appreciated. AORTA: No significant abnormality. OSSEOUS STRUCTURES: No significant abnormality is seen. OTHER: No significant additional abnormality is seen. IMPRESSION: 1. 8.2 mm right UPJ calculus resulting in mild to moderate left-sided hydronephrosis. Additional calc billie mid to lower pole left kidney. 2. Basilar pleural effusions and compressive atelectasis.
--- NOTE | 2021-02-03 15:43 | PN ---
PROGRESS NOTE DATE OF SERVICE: 02/03/2021 REASON FOR FOLLOWUP: E coli pyelonephritis. INTERVAL HISTORY: The patient did spike a fever last night of 101.7 degrees Fahrenheit. The patient has been complaining of feeling nauseated today; had an episode of vomiting this morning and is complaining of abdominal bloating. No chest pain, shortness of breath or cough. Has been complaining of movement for the last few days. PHYSICAL EXAMINATION: Blood pressure 135/74 with a pulse of 80, temperature 99.5, T-max 101.7. She is 97% on room air. GENERAL DESCRIPTION: General description is an elderly female up in the bed in no distress. RESPIRATORY SYSTEM: Unlabored breathing. Decreased intensity of breath sounds. No wheeze. HEART: S1, S2. Regular rate and rhythm. ABDOMEN: Soft. Mildly distended. No guarding or rigidity. EXTREMITIES: No edema of the feet. LABS: Hemoglobin is 11.4, white count 10.5, creatinine is 0.7. DIAGNOSTIC IMPRESSION AND PLAN: Patient with Escherichia coli pyelonephritis. However, in view of the new fever and vomiting, we will obtain a CT of abdomen and pelvis with contrast to rule out any other intraabdominal pathology. Continue with Rocephin 2 grams continue supportive care. MMODL / IJN: [id number] /
--- NOTE | 2021-02-03 16:17 | P.GSCN ---
History of Present Illness Consult date: 02/03/21 History of present illness: 75 yo female in the hospital with a probable pyelonephritis. Has a history of uti. Presented with fever and chills. Had an elevated wbc. SHe has grown e coli in her urine.She had a renal us showing a 1 cm llp stone that is non obstructing. She had a 1 cm llp stone on a ct scan in 2017. Her wbc had normalized but she developed some low-grade fever and the white count jumped to 10,000 today. A computed tomography scan of the abdomen was performed identifying the stone in the left lower pole had migrated in the UPJ with mild to moderate hydronephrosis. Patient is known about the stone for a couple years. She has not had recurring urinary infections until the summer. She has had 3 infections in the summer. Review of Systems All systems: negative - Constitutional Denies fever, Denies weight loss - EENT Eyes: denies blurred vision Ears, nose, mouth and throat: Denies dysphagia - Cardiovascular Denies chest pain, Denies shortness of breath - Respiratory Denies cough, Denies 7 - Gastrointestinal Reports as per HPI - Genitourinary Genitourinary: Denies dysuria, Denies hematuria - Integumentary Denies rash, Denies unusual bruising - Neurological Denies headaches, Denies syncope - Hematologic/Lymphatic Denies easy bleeding, Denies easy bruising Past Medical History Past Medical History: Hyperlipidemia, Hypertension Additional Past Medical History / Comment(s): . History of Any Multi-Drug Resistant Organisms: C-DIFF Year Discovered:: 01/26/17 MDRO Source:: STOOL Past Surgical History: Cholecystectomy, Hysterectomy, Tubal Ligation Additional Past Surgical History / Comment(s): bladder suspension SX X3, PARTIAL HYSTERCTOMY THEN A 2ND SX TO REMOVED OVARIES, Past Anesthesia/Blood Transfusion Reactions: No Reported Reaction Past Psychological History: Anxiety Smoking Status: Never smoker Past Alcohol Use History: Occasional Additional Past Alcohol Use History / Comment(s): PT DENIES ANY DEPRESSION OR THOUGHTS OF WANTING TO HARM SELF. Past Drug Use History: None Reported - Past Family History Mother Additional Family Medical History / Comment(s): EMPHYSEMA Father Family Medical History: CVA/TIA, Hypertension Medications and Allergies Home Medications Medication Instructions Recorded Confirmed Type Pravastatin Sodium [Pravachol] 20 mg PO HS 01/26/17 01/31/21 History Aspirin EC [Ecotrin Low Dose] 81 mg PO HS 01/31/21 01/31/21 History Cranberry Fruit Extract [Cranberry] 500 mg PO HS 01/31/21 01/31/21 History Losartan [Cozaar] 50 mg PO DAILY 01/31/21 01/31/21 History Vortioxetine Hydrobromide 20 mg PO DAILY 01/31/21 01/31/21 History [Trintellix] Allergies Allergy/AdvReac Type Severity Reaction Status Date / Time No Known Allergies Allergy Verified 01/31/21 14:06 Surgical - Exam Vital Signs Temp Pulse Resp BP Pulse Ox 100.4 F H 101 H 18 128/72 94 L 01/31/21 11:56 01/31/21 11:56 01/31/21 11:56 01/31/21 11:56 01/31/21 11:56 - General well developed, well nourished, no distress - Eyes PERRL - ENT no hearing loss - Respiratory normal expansion, normal respiratory effort - Cardiovascular Rhythm: regular - Abdomen Abdomen: soft, non tender - Neurologic normal sensation - Musculoskeletal normal posture - Psychiatric oriented to time, oriented to person, oriented to place, speech is normal, memory intact Results - Labs 02/03/21 05:30 02/03/21 05:30 Abnormal Lab Results - Last 24 Hours (Table) 02/02/21 02/03/21 Range/Units 05:01 05:30 Neutrophils # 8.3 H (1.3-7.7) k/uL BUN 8.0 L (9.0-27.0) mg/dL BUN/Creatinine Ratio 10.00 L (12.00-20.00) Ratio Calcium 8.3 L (8.7-10.3) mg/dL Microbiology - Last 24 Hours (Table) 01/31/21 13:02 Blood Culture - Preliminary Blood No Growth after 48 hours 01/31/21 13:02 Blood Culture - Preliminary Blood No Growth after 48 hours 01/31/21 12:59 Urine Culture - Final Urine,Voided Escherichia coli Diabetes panel 02/02/21 Range/Units 05:01 Sodium 140 (135-145) mmol/L Potassium 3.6 (3.5-5.5) mmol/L Chloride 109 (96-109) mmol/L Carbon Dioxide 23.0 (21.6-31.8) mmol/L BUN 8.0 L (9.0-27.0) mg/dL Creatinine 0.8 (0.6-1.5) mg/dL Glucose 109 (70-110) mg/dL Calcium 8.3 L (8.7-10.3) mg/dL Calcium panel 02/02/21 Range/Units 05:01 Calcium 8.3 L (8.7-10.3) mg/dL Pituitary panel 02/02/21 Range/Units 05:01 Sodium 140 (135-145) mmol/L Potassium 3.6 (3.5-5.5) mmol/L Chloride 109 (96-109) mmol/L Carbon Dioxide 23.0 (21.6-31.8) mmol/L BUN 8.0 L (9.0-27.0) mg/dL Creatinine 0.8 (0.6-1.5) mg/dL Glucose 109 (70-110) mg/dL Calcium 8.3 L (8.7-10.3) mg/dL Adrenal panel 02/02/21 Range/Units 05:01 Sodium 140 (135-145) mmol/L Potassium 3.6 (3.5-5.5) mmol/L Chloride 109 (96-109) mmol/L Carbon Dioxide 23.0 (21.6-31.8) mmol/L BUN 8.0 L (9.0-27.0) mg/dL Creatinine 0.8 (0.6-1.5) mg/dL Glucose 109 (70-110) mg/dL Calcium 8.3 L (8.7-10.3) mg/dL - Imaging CT scan - abdomen: report reviewed, image reviewed CT scan - pelvis: report reviewed, image reviewed US - kidney/bladder: report reviewed, image reviewed Assessment and Plan Assessment: Impression: Obstructing left ureteral stone with urinary tract infection and sepsis Recommendations: Given that the stone is moved into the UPJ and her fever has reappeared as well as the rising white count sheath the patient needs a double-J catheter to drain the urine. Secondarily she'll need a ureteroscopy and laser lithotripsy. This is been discussed the patient at length will be set up for tomorrow.
[2021-02-03] MEDS ORDERED: ONDANSETRON 4 MG/2 ML VIAL IVP ONE (17:32)
[2021-02-03] MEDS ORDERED: DEXAMETHASONE SOD PHOSPHATE 4 MG/ML 1 ML VIAL IV ONE (17:32)
[2021-02-03] MEDS: ASPIRIN 81 MG PO SCH (21:36)
[2021-02-03] MEDS: PRAVASTATIN SODIUM 20 MG TAB PO SCH (21:36)
--- NOTE | 2021-02-03 23:48 | P.PN ---
Subjective Progress Note Date: 02/03/21 Principal diagnosis: Sepsis due to UTI Ms. Diaz is a 75-year-old female with the past medical history of hypertension, hyperlipidemia coming to the hospital with low-grade fevers. Patient states that she was recently treated for urinary tract infection 3 weeks ago with ciprofloxacin and had mild resolution of her but last night she noticed increased frequency of urination. She also states that she was nauseous and mild chills at home. She also had couple of episodes of vomiting at home. Patient denies having any suprapubic or low back pain. She denies noticing any blood in her urine. Patient denied having any urological procedures done recently. She denies having any chest pain or palpitations. No cough or difficulty in breathing. She denies having any abdominal pain, diarrhea or constipation. In the ER patient had a T-max of 101.8, heart rate 73, respiratory rate 18, blood pressure 118/59, saturating at 98% on room air. She had a urine analysis done showing negative nitrites, large leukocyte esterase, more than 182 WBCs with WBC clumps. On reviewing her a absolute white count of 18.3, hemoglobin 13.3, platelets 276. Sodium 133, potassium 4.2, chloride 100, bicarb 25, BUN 15, creatinine 0.74. AST 48, ALT 47. On 02/02/2021 -patient is seen and examined at the bedside. Patient states that she feels much better in terms of suprapubic discomfort. She states that she felt warm this morning, when they checked her temperature she had a fever so they gave her cooling blankets and currently she is afebrile. Patient denied having any chest pain or palpitations. No cough or difficulty breathing. No abdominal pain nausea vomiting or diarrhea. On reviewing her vitals T-max of 100.2 this morning, heart rate of 74, respiratory 18, blood pressure 124/92, saturating at 97% on room air. On reviewing the labs white count of 10, hemoglobin 11.5, platelets 199. Sodium 142, potassium 3.8, chloride 110, bicarb 24, BUN 12, creatinine 0.7. On 02/03/2021 -patient is seen and examined at the bedside. Patient states that she feels much better in terms of suprapubic symptoms that she has been having. On reviewing her vitals she still has a temperature of 101.7 last night. She has been getting Tylenol for her fevers. Patient denies having any headaches, neck stiffness nausea or vomiting. She denies having any chest pain or palpitations. No cough or difficulty breathing. No abdominal symptoms. On rev iewing her vitals T-max of 101.7, heart rate 95, respiratory 16, blood pressure 148/77 saturating at 97% on room air. On reviewing the labs white count of 10.5, hemoglobin 11.5, platelets 216. Sodium 141, potassium 3.4, chloride 100, bicarb 22, BUN 10, creatinine 0.7. Patient's medications have been reviewed. Urine culture positive for E. coli thomason susceptible. She continues to be on ceftriaxone. Objective - Vital Signs Vital signs: Vital Signs Temp 99.5 F 02/03/21 12:15 Pulse 80 02/03/21 12:15 Resp 19 02/03/21 12:15 BP 135/74 02/03/21 12:15 Pulse Ox 97 02/03/21 12:15 Intake & Output 02/02/21 02/03/21 02/03/21 18:59 06:59 18:59 Intake Total 1610 2040 Balance 1610 2040 Intake: Intake, IV Titration 1610 1560 Amount Sodium Chloride 0.9% 1, 1560 1560 000 ml @ 130 mls/hr IV . Q7H42M [facility] Rx#:[id number] cefTRIAXone 2 gm In 50 Sodium Chloride 0.9% 50 ml @ 100 mls/hr IVPB Q24HR [facility] Rx#:[id number] Oral 480 Other: Voiding Method Toilet Toilet # Voids 2 1 - Exam PHYSICAL EXAMINATION: GENERAL: Comfortably lying up in the bed appears to be no acute distress. HEENT: No conjunctival pallor. CARDIOVASCULAR: S1 and S2 present. PULMONARY: Bilateral breath sounds positive. No wheeze or crackles.. ABDOMEN: Soft,non -tender, normal bowel sounds. No guarding or rigidity. No CVA tenderness. EXTREMITIES: No edema NEUROLOGICAL: Gross neurological examination did not reveal any focal deficits. - Labs CBC & Chem 7: 02/03/21 05:30 02/03/21 05:30 Labs: Abnormal Lab Results - Last 24 Hours (Table) 02/03/21 02/03/21 Range/Units 05:30 05:30 Neutrophils # 8.3 H (1.3-7.7) k/uL Calcium 8.4 L (8.7-10.3) mg/dL Microbiology - Last 24 Hours (Table) 01/31/21 13:02 Blood Culture - Preliminary Blood No Growth after 48 hours 01/31/21 13:02 Blood Culture - Preliminary Blood No Growth after 48 hours 01/31/21 12:59 Urine Culture - Final Urine,Voided Escherichia coli Assessment and Plan Assessment: ASSESSMENT Sepsis secondary to UTI Failed outpatient UTI treatment Hypertension Hyperlipidemia History of bladder suspension surgery x3 History of partial hysterectomy History of anxiety PLAN: Patient's urine culture is positive for E. coli with thomason susceptibilities. She is continued on ceftriaxone. In spite of being on antibiotic patient still spiking a fever as high as 101.7 last night. As the renal ultrasound shows 0.9 mm left renal calculi, a CAT scan of the abdomen and pelvis has been ordered to look for any underlying stones that might cause obstruction. Urology consulted. Continue with the rest of her current medication regimen. Further recommendations depending on the progress of the patient.
[2021-02-04] MEDS: HEPARIN SODIUM,PORCINE/PF 5,000 UNIT/0.5 ML SYRINGE SQ SCH ×3 (00:25→16:29)
[2021-02-04] MEDS: SODIUM CHLORIDE 0.9% 1,000 ML IV SCH ×2 (03:15→16:29)
[2021-02-04] MEDS: LACTOBACILLUS ACIDOPH & BULGAR 1 EACH PACKET PO SCH ×3 (06:48→21:31)
[2021-02-04] MEDS ORDERED: HYDROmorphone 0.5 MG/0.5 ML SYRINGE IVP PRN (07:00)
[2021-02-04] MEDS: LOSARTAN 50 MG TAB PO SCH (08:55)
[2021-02-04] MEDS: DOCUSATE 100 MG CAP PO SCH ×2 (08:55→21:28)
[2021-02-04] MEDS: VORTIOXETINE HYDROBROMIDE 20 MG TABLET PO SCH (10:32)
[2021-02-04 10:54] LABS: African American GFR (CKD) 99.6 (60.0-200.0); Anion Gap 13.6 mmol/L (4.00-12.00); BUN/Creat Ratio 12.86 Ratio (12.00-20.00); Calcium 8.4 mg/dL (8.7-10.3); Carbon Dioxide 22.4 mmol/L (21.6-31.8); Potassium 3.4 mmol/L (3.5-5.5)
[2021-02-04] MEDS: ACETAMINOPHEN TAB 325 MG TAB PO PRN (11:24)
[2021-02-04] MEDS ORDERED: IV FLUID CONTINUATION 1,000 ML IV ONE ×2 (12:11)
[2021-02-04] MEDS ORDERED: ONDANSETRON 4 MG/2 ML VIAL IVP ONE (12:20)
[2021-02-04] MEDS ORDERED: DEXAMETHASONE SOD PHOSPHATE 4 MG/ML 1 ML VIAL IVP ONE (12:20)
[2021-02-04] MEDS ORDERED: MIDAZOLAM 2 MG/2 ML VIAL ONE (12:43)
[2021-02-04] MEDS ORDERED: PROPOFOL 10 MG/ML 20 ML VIAL IV ONE (12:43)
[2021-02-04] MEDS ORDERED: fentaNYL (PF) 50 MCG/ML 2 ML AMP ONE (12:43)
--- NOTE | 2021-02-04 13:21 | P.OP ---
Date of Procedure: 02/04/21 Preoperative Diagnosis: Left ureteral calculus with obstruction, urinary tract infection with sepsis, pyonephrosis Postoperative Diagnosis: Same Procedure(s) Performed: Cystoscopy placement of double-J catheter left, 6 x 24 Anesthesia: MAC Surgeon: Maurisio Guo Pathology: none sent Condition: stable Disposition: PACU Indications for Procedure: Patient is 75. She came in the hospital with a febrile urinary tract infection, she had an ultrasound showing a 1 cm left lower pole stone which was normal for her. The day of my consultation after I saw her she had a CAT scan because she had an elevated temperature again and her white count jumped. The CAT scan showed that the stone which is in the left lower pole had moved to the UPJ and obstructed the ureter. Because of that she'll have a left double-J catheter to drain the infected urine to make sure that when I do ureteroscopy and laser lithotripsy that the kidney has been draining appropriately. This is been discussed and understood by the patient. Description of Procedure: The patient is brought to the operating suite. On the operating table she's been given IV sedation. She's placed lithotomy position with sterile prep and drape. Cystoscopy shows cystitis. The left ureteral this is identified and intubated with an 035 wire passed into the kidney. Over the wires passed a 6 x 24 double-J catheter that advances by the stone into the renal was and coils. Coils in the bladder. The bladder strain the patient's awake and returned recovery room good condition Impression successful placement double-J catheter. From a urologic standpoint the patient be discharged home on oral antibiotics. I will remove her stent and stone in about 10 days. She should be seen in the office in one week. She should stay on antibiotics until I see her.
[2021-02-04] MEDS: LACTATED RINGERS 1,000 ML IV SCH (14:45)
--- NOTE | 2021-02-04 15:52 | FL ---
Fluoroscopy HISTORY: Cystoscopy 9 seconds fluoroscopy time supplied to the referring clinician. 2 intraoperative C-arm images docume nt the procedure. See dictated report from urology.
[2021-02-04 19:55] VITALS: RESP 16
[2021-02-04] MEDS: PRAVASTATIN SODIUM 20 MG TAB PO SCH (21:28)
[2021-02-04] MEDS: ASPIRIN 81 MG PO SCH (21:28)
[2021-02-05] MEDS: HEPARIN SODIUM,PORCINE/PF 5,000 UNIT/0.5 ML SYRINGE SQ SCH ×2 (01:25→08:49)
[2021-02-05] MEDS: LACTATED RINGERS 1,000 ML IV SCH (01:25)
--- NOTE | 2021-02-05 07:04 | PN ---
PROGRESS NOTE DATE OF SERVICE: 02/04/2021 REASON FOR FOLLOWUP VISIT: Complicated urinary tract infection. INTERVAL HISTORY: Patient overall fever pattern has improved. The patient is breathing comfortably. No chest pain. No shortness of breath or cough. No nausea, vomiting or diarrhea. PHYSICAL EXAMINATION: Blood pressure 121/68 with a pulse of 77. Temperature is 97.8. She is 94% on room air. General description is an elderly female up in the room in no distress. Respiratory system: Unlabored breathing, clear to auscultation. Heart: S1, S2. Regular rate and rhythm. Abdomen soft, no tenderness. LABS: Blood culture has been negative. Creatinine is 0.7. DIAGNOSTIC IMPRESSION: Patient with E. coli complicated urinary tract infection with obstructing stone in this patient status post cystoscopy and ureteral stent placement. Patient to continue Rocephin and hopefully finish therapy with oral antibiotics. Continue supportive care. MMODL / IJN: [id number] /
--- NOTE | 2021-02-05 07:48 | P.PN ---
Subjective Progress Note Date: 02/05/21 The patient is in her first postoperative day from a stent placement for an obstructing ureteral stone and pyelonephrosis on the left side. She is doing very well. She feels much better. Her appetite is back. From a urologic standpoint she can be discharged home. She should be seen in the office in one week. She'll be set up for stone and stent removal at a later date. Objective - Vital Signs Vital signs: Vital Signs Temp 97.6 F 02/05/21 05:00 Pulse 66 02/05/21 05:00 Resp 16 02/05/21 05:00 BP 158/77 02/05/21 05:00 Pulse Ox 97 02/05/21 05:00 Intake & Output 02/04/21 02/05/21 02/05/21 18:59 06:59 18:59 Intake Total 640 Output Total 1 Balance 639 Weight 68.039 kg Intake: IV 400 Oral 240 Output: Estimated Blood Loss 1 Other: Voiding Method Toilet Toilet # Voids 1 3 - Labs CBC & Chem 7: 02/03/21 05:30 02/04/21 05:45 Labs: Abnormal Lab Results - Last 24 Hours (Table) 02/04/21 Range/Units 05:45 Potassium 3.4 L (3.5-5.5) mmol/L Anion Gap 13.60 H (4.00-12.00) mmol/L Calcium 8.4 L (8.7-10.3) mg/dL Microbiology - Last 24 Hours (Table) 01/31/21 13:02 Blood Culture - Preliminary Blood No Growth after 96 hours 01/31/21 13:02 Blood Culture - Preliminary Blood No Growth after 96 hours
[2021-02-05] MEDS: LACTOBACILLUS ACIDOPH & BULGAR 1 EACH PACKET PO SCH (08:49)
[2021-02-05] MEDS: DOCUSATE 100 MG CAP PO SCH (08:49)
[2021-02-05] MEDS: LOSARTAN 50 MG TAB PO SCH (08:49)
[2021-02-05] MEDS: VORTIOXETINE HYDROBROMIDE 20 MG TABLET PO SCH (08:52)
[2021-02-05] MEDS: SODIUM CHLORIDE 0.9% 1,000 ML IV SCH (09:05)
--- NOTE | 2021-02-05 09:42 | P.PN ---
Subjective Progress Note Date: 02/04/21 Sepsis due to UTI Ms. Diaz is a 75-year-old female with the past medical history of hypertension, hyperlipidemia coming to the hospital with low-grade fevers. Patient states that she was recently treated for urinary tract infection 3 weeks ago with ciprofloxacin and had mild resolution of her but last night she noticed increased frequency of urination. She also states that she was nauseous and mild chills at home. She also had couple of episodes of vomiting at home. Patient denies having any suprapubic or low back pain. She denies noticing any blood in her urine. Patient denied having any urological procedures done recently. She denies having any chest pain or palpitations. No cough or difficulty in breathing. She denies having any abdominal pain, diarrhea or constipation. In the ER patient had a T-max of 101.8, heart rate 73, respiratory rate 18, blood pressure 118/59, saturating at 98% on room air. She had a urine analysis done showing negative nitrites, large leukocyte esterase, more than 182 WBCs with WBC clumps. On reviewing her a absolute white count of 18.3, hemoglobin 13.3, platelets 276. Sodium 133, potassium 4.2, chloride 100, bicarb 25, BUN 15, creatinine 0.74. AST 48, ALT 47. On 02/02/2021 -patient is seen and examined at the bedside. Patient states that she feels much better in terms of suprapubic discomfort. She states that she felt warm this morning, when they checked her temperature she had a fever so they gave her cooling blankets and currently she is afebrile. Patient denied having any chest pain or palpitations. No cough or difficulty breathing. No abdominal pain nausea vomiting or diarrhea. On reviewing her vitals T-max of 100.2 this morning, heart rate of 74, respiratory 18, blood pressure 124/92, saturating at 97% on room air. On reviewing the labs white count of 10, hemoglobin 11.5, platelets 199. Sodium 142, potassium 3.8, chloride 110, bicarb 24, BUN 12, creatinine 0.7. On 02/03/2021 -patient is seen and examined at the bedside. Patient states that she feels much better in terms of suprapubic symptoms that she has been having. On reviewing her vitals she still has a temperature of 101.7 last night. She has been getting Tylenol for her fevers. Patient denies having any headaches, neck stiffness nausea or vomiting. She denies having any chest pain or palpitations. No cough or difficulty breathing. No abdominal symptoms. On reviewing her vitals T-max of 101.7, heart rate 95, respiratory 16, blood pressu re 148/77 saturating at 97% on room air. On reviewing the labs white count of 10.5, hemoglobin 11.5, platelets 216. Sodium 141, potassium 3.4, chloride 100, bicarb 22, BUN 10, creatinine 0.7. 02/04/2021 Patient is seen and evaluated and follow-up and is nothing by mouth currently as patient is scheduled to undergo ureteroscopy with double-J stent placement with urology today. Patient continues with fevers and maintained on IV ceftriaxone with infectious disease following. Blood cultures remain negative and urine culture showing E. coli. Patient having some mild shortness of breath and cu rrently on room air. Will add incentive spirometer and likely decrease IV fluids after surgery. Patient denies any chest pain or palpitations. Review of systems: Constitutional: No reports of fatigue, reports continued fever Cardiovascular: No reports of chest pain or palpitations Respiratory: reports mild shortness of breath on lying down GI: No reports of nausea, vomiting, or diarrhea : No reports of dysuria or retention Neurovascular: No reports of weakness or numbness All medications have been reviewed Objective - Vital Signs Vital signs: Vital Signs Temp 98.5 F 02/04/21 04:57 Pulse 82 02/04/21 04:57 Resp 16 02/04/21 04:57 BP 140/78 02/04/21 04:57 Pulse Ox 95 02/04/21 04:57 Intake & Output 02/03/21 02/04/21 02/04/21 18:59 06:59 18:59 Intake Total 1560 Balance 1560 Intake: Intake, IV Titration 1560 Amount Sodium Chloride 0.9% 1, 1560 000 ml @ 50 mls/hr IV . Q20H [facility] Rx#:[id number] Other: Voiding Method Toilet Toilet # Voids 3 - Exam GENERAL: Comfortably lying up in the bed appears to be no acute distress. HEENT: No conjunctival pallor. CARDIOVASCULAR: S1 and S2 present. PULMONARY: Bilateral breath sounds positive. No wheeze or crackles.. ABDOMEN: Soft,non -tender, normal bowel sounds. No guarding or rigidity. No CVA tenderness. EXTREMITIES: No edema NEUROLOGICAL: Gross neurological examination did not reveal any focal deficits. - Labs CBC & Chem 7: 02/03/21 05:30 02/04/21 05:45 Labs: Abnormal Lab Results - Last 24 Hours (Table) 02/03/21 Range/Units 05:30 Calcium 8.4 L (8.7-10.3) mg/dL Microbiology - Last 24 Hours (Table) 01/31/21 13:02 Blood Culture - Preliminary Blood No Growth after 72 hours 01/31/21 13:02 Blood Culture - Preliminary Blood No Growth after 72 hours Assessment and Plan Assessment: Sepsis secondary to UTI Failed outpatient UTI treatment 8.2 mm right UPJ calculus with mild to moderate left-sided hydronephrosis as noted on CT Possible pyelonephritis secondary to above Hypertension Hyperlipidemia History of bladder suspension surgery x3 History of partial hysterectomy History of anxiety PLAN: Recommend to continue with current medications and management. Urology and infectious disease following and plans are for ureteroscopy with stent placement with urology today and patient is currently nothing by mouth. Patient with continued low-grade temps and will monitor closely. Will add incentive spirometer and encouraged to use at least 10 times every hour while awake as patient was having some mild shortness of breath. Patient denies a cough or congestion. Patient is currently maintained on IV hydration and will decrease the rate after surgery and once diet is tolerated. Urine cultures have finalized showing E. coli with sensitivities and blood cultures remain negative. Will discuss with infectious disease about discharge antibiotic re commendations. Patient will need outpatient follow-up with urology. Further recommendations to follow based on the clinical course of the patient. Possible discharge in 24-48 hours.
[2021-02-05 12:13] VITALS: BP 156/53; PULSE 68; TEMP 98.1
--- NOTE | 2021-02-10 08:33 | P.DS ---
Providers Date of admission: 01/31/21 13:53 Expected date of discharge: 02/05/21 Attending physician: Jennifer Johnson Consults: 01/31/21 23:02 Consult Physician Routine Consulting Provider: Swapnil Leo Consult Reason/Comments: UTI with fever Do you want consulting provider notified?: Yes, Notify in am 02/02/21 18:23 Consult Physician Routine Consulting Provider: Maurisio Guo Consult Reason/Comments: kidney stone Do you want consulting provider notified?: Yes Primary care physician: Susanne Toure Hospital Course: Final diagnosis Sepsis secondary to UTI Failed outpatient UTI treatment 8.2 mm right UPJ calculus with mild to moderate left-sided hydronephrosis as noted on CT Possible pyelonephritis secondary to above Hypertension Hyperlipidemia History of bladder suspension surgery x3 History of partial hysterectomy History of anxiety Discharge disposition Patient is being discharged in a stable condition with guarded prognosis to home. Patient will follow-up with Dr. toure in the outpatient setting upon discharge. Patient is to also follow-up with urology Dr. Guo in 1-2 weeks for intervention. Patient will continue on oral antibiotics in the form of Cipro 500 mg twice daily for the next 12 days. Total time taken is greater than 35 minutes. Hospital course Sepsis due to UTI Ms. Diaz is a 75-year-old female with the past medical history of h ypertension, hyperlipidemia coming to the hospital with low-grade fevers. Patient states that she was recently treated for urinary tract infection 3 weeks ago with ciprofloxacin and had mild resolution of her but last night she noticed increased frequency of urination. She also states that she was nauseous and mild chills at home. She also had couple of episodes of vomiting at home. Patient denies having any suprapubic or low back pain. She denies noticing any blood in her urine. Patient denied having any urological procedures done recently. She denies having any chest pain or palpitations. No cough or difficulty in breathing. She denies having any abdominal pain, diarrhea or constipation. In the ER patient had a T-max of 101.8, heart rate 73, respiratory rate 18, blood pressure 118/59, saturating at 98% on room air. She had a urine analysis done showing negative nitrites, large leukocyte esterase, more than 182 WBCs with WBC clumps. On reviewing her a absolute white count of 18.3, hemoglobin 13.3, platelets 276. Sodium 133, potassium 4.2, chloride 100, bicarb 25, BUN 15, creatinine 0.74. AST 48, ALT 47. On 02/02/2021 -patient is seen and examined at the bedside. Patient states that she feels much better in terms of suprapubic discomfort. She states that she felt warm this morning, when they checked her temperature she had a fever so they gave her cooling blankets and currently she is afebrile. Patient denied having any chest pain or palpitations. No cough or difficulty breathing. No abdominal pain nausea vomiting or diarrhea. On reviewing her vitals T-max of 100.2 this morning, heart rate of 74, respiratory 18, blood pressure 124/92, saturating at 97% on room air. On reviewing the labs white count of 10, hemoglobin 11.5, platelets 199. Sodium 142, potassium 3.8, chloride 110, bicarb 24, BUN 12, creatinine 0.7. On 02/03/2021 -patient is seen and examined at the bedside. Patient states that she feels much better in terms of suprapubic symptoms that she has been having. On reviewing her vitals she still has a temperature of 101.7 last night. She has been getting Tylenol for her fevers. Patient denies having any headaches, neck stiffness nausea or vomiting. She denies having any chest pain or palpitations. No cough or difficulty breathing. No abdominal symptoms. On reviewing her vitals T-max of 101.7, heart rate 95, respiratory 16, blood pressure 148/77 saturating at 97% on room air. On reviewing the labs white count of 10.5, hemoglobin 11.5, platelets 216. Sodium 141, potassium 3.4, chloride 100, bicarb 22, BUN 10, creatinine 0.7. 02/04/2021 Patient is seen and evaluated and follow-up and is nothing by mouth currently as patient is scheduled to undergo ureteroscopy with double-J stent placement with urology today. Patient continues with fevers and maintained on IV ceftriaxone with infectious disease following. Blood cultures remain negative and urine culture showing E. coli. Patient having some mild shortness of breath and currently on room air. Will add incentive spirometer and likely decrease IV fluids after surgery. Patient denies any chest pain or palpitations. 02/05/2021 Patient is seen in follow-up this morning no acute issues noted. Patient currently walking up in the halls stating she is feeling much better and is anticipating going home. Patient has been afebrile. Urine cultures finalized s howing E. coli and blood cultures remain negative. Infectious disease following recommending Cipro 500 mg twice daily for the next 12 days and close outpatient follow-up with urology. Patient also instructed to follow-up with primary care provider Dr. Toure upon discharge. Patient also given instructions to continue with probiotics and increase yogurt intake. Currently no reports of chest pain, shortness of breath, or palpitations. Patient is afebrile. No reports of nausea or vomiting and patient is tolerating diet. Patient will be discharged home today. On exam vital signs are stable. Respiratory system shows diminished breath sounds at the bases with no wheezing or rhonchi noted. Abdomen is soft and nontender. Nervous system shows no focal deficits. Please refer to medication reconciliation sheet for a list of medications. Patient Condition at Discharge: Stable Plan - Discharge Summary New Discharge Prescriptions: New Docusate [Colace] 100 mg PO BID 30 Days #60 cap Lactobacillus Acidoph & Bulgar [Lactinex] 1 each PO TID #30 packet Ibuprofen [Motrin] 400 mg PO Q6HR PRN tab PRN Reason: Fever Acetaminophen Tab [Tylenol] 650 mg PO Q6HR PRN tab PRN Reason: Mild Pain Or Fever > 100.5 Ciprofloxacin HCl [Cipro] 500 mg PO BID 12 Days #24 tab Continue Pravastatin Sodium [Pravachol] 20 mg PO HS Aspirin EC [Ecotrin Low Dose] 81 mg PO HS Vortioxetine Hydrobromide [Trintellix] 20 mg PO DAILY Losartan [Cozaar] 50 mg PO DAILY Cranberry Fruit Extract [Cranberry] 500 mg PO HS Discharge Medication List Pravastatin Sodium [Pravachol] 20 mg PO HS 01/26/17 [History] Aspirin EC [Ecotrin Low Dose] 81 mg PO HS 01/31/21 [History] Cranberry Fruit Extract [Cranberry] 500 mg PO HS 01/31/21 [History] Losartan [Cozaar] 50 mg PO DAILY 01/31/21 [History] Vortioxetine Hydrobromide [Trintellix] 20 mg PO DAILY 01/31/21 [History] Acetaminophen Tab [Tylenol] 650 mg PO Q6HR PRN tab 02/05/21 [Rx] Ciprofloxacin HCl [Cipro] 500 mg PO BID 12 Days #24 tab 02/05/21 [Rx] Docusate [Colace] 100 mg PO BID 30 Days #60 cap 02/05/21 [Rx] Ibuprofen [Motrin] 400 mg PO Q6HR PRN tab 02/05/21 [Rx] Lactobacillus Acidoph & Bulgar [Lactinex] 1 each PO TID #30 packet 02/05/21 [Rx] Follow up Appointment(s)/Referral(s): Susanne Toure MD [Primary Care Provider] - 02/09/21 2:40 pm Maurisio Guo MD [STAFF PHYSICIAN] - 02/13/21 9:00 am Patient Instructions/Handouts: Ciprofloxacin (By mouth), Laxative, Stool Softeners (By mouth), Probiotic (By mouth), Urinary Tract Infection in Women (DC), Urethral Stent Placement (DC) Activity/Diet/Wound Care/Special Instructions: Activity Limited until follow-up Follow-up with primary care provider upon discharge Follow-up with urology as discussed in one week Continue with antibiotics as instructed for 12 days Encourage fluids and rest Monitor closely for any fevers or decreased in urinating and notify provider immediately or return to ER Use Tylenol and/or Motrin for fevers and pain Discharge Disposition: HOME SELF-CARE
== END 2021-02-05 12:55 | disposition home or self-care (01) | DRG 854 ==
LOC: EC 11:37 → 5NMEDONC 13:53
PROVIDERS: ADMIT Hospitalist; ATTEND Hospitalist
PROC: 0T778DZ Dilation of Left Ureter with Intraluminal Device, Via Natural or Artificial Opening Endoscopic (ICD-10-PCS; principal; 2021-02-04 08:10)
DX: A41.9 Sepsis, unspecified organism (principal); N13.6 Pyonephrosis; I10 Essential (primary) hypertension; Z87.440 Personal history of urinary (tract) infections; E78.5 Hyperlipidemia, unspecified; Z90.711 Acquired absence of uterus with remaining cervical stump; F41.9 Anxiety disorder, unspecified; B96.20 Unspecified Escherichia coli [E. coli] as the cause of diseases classified elsewhere; Z82.49 Family history of ischemic heart disease and other diseases of the circulatory system; Z82.5 Family history of asthma and other chronic lower respiratory diseases; Z82.3 Family history of stroke; Z79.899 Other long term (current) drug therapy
CPT/HCPCS: 36415; 74177; 74420; 76770; 80048; 80053; 81001; 83605; 85025; 87040; 87077; 87086; 87186; 96360; 99285

== ENCOUNTER → 2024-03-19 | Outpatient (CLI) | payer MEDICARE ==
--- NOTE | 2024-03-19 16:30 | XR ---
EXAMINATION TYPE: XR KUB DATE OF EXAM: 03/19/2024 3:58 PM CLINICAL INDICATION: Female, 78 years old with history of R109 ABD PAIN; [facility] COMPARISON: 02/03/2021 TECHNIQUE: One radiographic view of the abdomen was obtained. FINDINGS: There is a moderate stool burden, otherwise, the bowel gas pattern is nonspecific without d ilated loops of small or large bowel. . Fecal material and gas are demonstrated throughout the colon and rectum. There is no evidence for organomegaly or pneumoperitoneum. The osseous structures are intact. No ab normal calcifications are present. Right upper quadrant cholecystectomy clips. Scoliosis changes with DEXA scoliosis apex L1. IMPRESSION: Moderate amount of stool, Nonspecific bowel gas pattern without radiographic evidence for acute proce ss. [facility], , 03/19/2024 4:28 PM
== END | disposition home or self-care (01) ==
LOC: RADXRYALE 15:11
PROVIDERS: ATTEND Internal Medicine
DX: R10.9 Unspecified abdominal pain
CPT/HCPCS: 74018

== ENCOUNTER → 2024-03-21 | Outpatient (CLI) | payer MEDICARE ==
[2024-03-21 10:34] LABS: HCT 40.9 % (37.2-46.3); HGB 13.6 g/dL (12.0-15.0); MCH 29.6 pg (27.0-32.0); MCHC 33.3 g/dL (32.0-37.0); MCV 88.9 FL (80.0-97.0); Mean Platelet Volume 10.3 FL (9.5-12.2); NRBC Per 100 WBC 0 X 10*3/uL (0.00-0.01); Platelet Count 275 X 10*3/uL (140-440); RDW 13.1 % (11.5-14.5); WBC 9.26 X 10*3/uL (4.50-10.00)
[2024-03-21 10:51] LABS: ALT 53 U/L (8-44); AST 29 U/L (13-35); Blood Urea Nitrogen 16.8 mg/dL (9.0-27.0); Chloride 104 mmol/L (96-109); Chol/HDL Ratio 3.33 Ratio; Glucose 110 mg/dL (70-110); LDL Cholesterol,Calculated 101.1 mg/dL (0.0-131.0); Potassium 4.7 mmol/L (3.5-5.5); Sodium 143 mmol/L (135-145)
== END | disposition home or self-care (01) ==
LOC: LABWHC1 07:33
PROVIDERS: ATTEND Internal Medicine Cardiovascular Disease
CPT/HCPCS: 36415; 80048; 80061; 84443; 84450; 84460; 85027